=== PATIENT | female | born 1950 | race Caucasian/White ===

== ENCOUNTER 2021-04-23 13:28 | Outpatient (CLI) | payer MEDICARE, SELFPAY ==
--- NOTE | 2021-04-24 13:21 | WPDPFTINT ---
PFT Procedure Performed PFT Procedure Performed Spirometry with Pre/Post Bronchodilator Plethysmography (Lung Vol) Diffusing Cap (DLCO) Flow Vol Loop PFT Interpretation Lung volumes were measured with the body plethysmography method. The elevated residual volume and FRC are indicative of air trapping. The remaining lung volumes are unremarkable. Spirometry showed diminished expiratory flow rates and a diminished FEV1 to FVC ratio of 47%, consistent with obstructive airway disease. Following administration of a bronchodilator, there was no significant increase in expiratory flow rates. Lung diffusion capacity is severely reduced at 46% predicted. The flow volume loop is consistent with obstructive airway disease. Impression: Severe obstructive airway disease with evidence of air trapping and no response to bronchodilators on this testing. Severely reduced lung diffusion capacity.
--- NOTE | 2021-04-24 13:25 | WPDSIXMINUTE ---
Six Minute Walk Procedure Procedure Performed Pulmonary Stress Test (6 min walk) Six Minute Walk This 6 minute walk test was carried out with the patient breathing ambient air. The pre walk oxyhemoglobin saturation was 98%. The patient was able to walk over 274 m with no stops during testing. The perceived pre walk dyspnea was 3 on the Louisa scale and increased to 7 at the end of testing. During the 6 minute walk test, the oxyhemoglobin saturation remained over 94%. Impression: No evidence of oxyhemoglobin desaturation on this testing.
== END 2021-04-23 13:29 | disposition home or self-care (01) ==
PROVIDERS: Visit Provider Nurse Practitioner
DX: J44.9 Chronic obstructive pulmonary disease, unspecified (principal)
CPT/HCPCS: 94060; 94618; 94726; 94729

== ENCOUNTER 2022-03-23 12:25 | Outpatient (CLI) | payer MEDICARE, MEDICAID, SELFPAY ==
--- NOTE | 2022-03-24 09:52 | WPDSIXMINUTE ---
Six Minute Walk Procedure Procedure Performed Pulmonary Stress Test (6 min walk) Six Minute Walk Six Minute Walk: This 6 minute walk test was carried out with the patient breathing ambient air. The pre walk oxyhemoglobin saturation was 94%. The patient walked over 213 meters with no stops during testing. During the walk the oxyhemoglobin saturation remained 93% or higher. The perceived dyspnea on the Louisa scale at baseline was 0-1 and increased to 3 at the end of testing. During the walk, the patient used a wheeled walker for stability. Impression: No evidence of oxyhemoglobin desaturation on this test.
--- NOTE | 2022-03-24 09:55 | WPDPFTINT ---
PFT Procedure Performed PFT Procedure Performed Spirometry with Pre/Post Bronchodilator Plethysmography (Lung Vol) Diffusing Cap (DLCO) Flow Vol Loop PFT Interpretation Lung volumes were measured with the body plethysmography method. Lung volumes are unremarkable. Spirometry showed diminished expiratory flow rates and a diminished FEV1 to FVC ratio 53%, indicative of obstructive airway disease. Following administration of a bronchodilator there was a borderline increase in FEV1. Lung diffusion capacity is moderately reduced at 47% predicted. The flow volume loop is consistent with obstructive airway disease. In comparison to previous study in April of 2021, the post bronchodilator FVC is more or less unchanged but the post bronchodilator FEV1 is now greater by approximately 0.2 L. Lung diffusion capacity is also unchanged. Impression: Moderately severe obstructive airway disease with borderline response to bronchodilators. Moderately reduced lung diffusion capacity.
== END 2022-03-23 12:26 | disposition home or self-care (01) ==
PROVIDERS: PCP Internal Medicine; Visit Provider Nurse Practitioner
DX: J44.9 Chronic obstructive pulmonary disease, unspecified (principal); R94.2 Abnormal results of pulmonary function studies
CPT/HCPCS: 94060; 94618; 94726; 94729

== ENCOUNTER → 2023-07-08 12:12 | Outpatient (CLI) | payer MEDICARE, SELFPAY ==
--- NOTE | ~2023-07-08 | DEXA_ITS ---
Bone Density Report Name: BRANDON CONTRERAS Age: 73 Sex: Female Ethnicity: White Date of : 1950 Indication: postmenopausal osteoporosis; height loss; history of glucocorticoids; asthma or emphysema; hysterectomy; Referring Provider: Lonnie*Damien Mejia Study: Bone densitometry was performed. Exam Date: July 08, 2023 Accession number: [id number] Bone Density: Region BMD T-score Z-score Classification AP Spine (L1-L4) 0.824 -2.0 0.2 Osteopenia Femoral Neck (Left) 0.497 -3.2 -1.2 Osteoporosis Total Hip (Left) 0.602 -2.8 -1.2 Osteoporosis Femoral Neck (Right) 0.496 -3.2 -1.3 Osteoporosis Total Hip (Right) 0.596 -2.8 -1.2 Osteoporosis Total Hip Mean 0.599 -2.8 -1.2 Osteoporosis World Health Organization criteria for BMD impression classify patients as: Normal (T-score at or above -1.0), Osteopenia (T-score between -1.0 and -2.5), or Osteoporosis (T-score at or below -2.5). 10-year Fracture Risk: FRAX not reported because: Some T-score for Spine Total or Hip Total or Femoral Neck at or below -2.5 Previous Exams: Region Exam Age BMD T-score BMD Change BMD Change Date g/cm2 vs Baseline vs Previous AP Spine(L1-L4) 07/08/2023 73 0.824 -2.0 0.024* 0.024* 03/06/2018 67 0.800 -2.2 Total Hip(Left) 07/08/2023 73 0.602 -2.8 -0.023 -0.023 03/06/2018 67 0.624 -2.6 Total Hip(Right) 07/08/2023 73 0.596 -2.8 0.001 0.001 03/06/2018 67 0.595 -2.8 *Denotes significance at 95% confidence level, LSC for AP Spine = 0.022 g/cm2, LSC for Total Hip = 0.027 g/cm2 Clinical Information Provided by Patient: Has taken Glucocorticoids Has used the following medications: Prolia (i.e. denosumab), Vitamin D, Calcium, PREDNEZONE Has the following medical conditions: Asthma or Emphysema, Hysterectomy Patient maximum height was 65 Menopause Age: 26 No regular weight bearing exercise Does not regularly consume dairy products Drinks caffeinated beverages Onset of menses at age 16 Number of children 4 Impression: The patient has osteoporosis, based on the Left Femoral Neck T-score. The patient has risk factors, including: history of glucocorticoid therapy. No significant bone loss was observed. Discussion: INCREASED RISK OF FRACTURE. BONE DENSITY IS UNDESIRABLY LOW AT ONE OR MORE SKELETAL SITES, CONSISTENT WITH POSTMENOPAUSAL OSTEOPOROSIS. This patient's lowest T-score meets the World Health Organization's (W
== END ==
PROVIDERS: PCP Internal Medicine; Visit Provider Internal Medicine
DX: M81.0 Age-related osteoporosis without current pathological fracture (principal)
CPT/HCPCS: 77080

== ENCOUNTER 2023-09-22 22:04 | Observation (INO) | payer MEDICARE, SELFPAY ==
--- NOTE | ~2023-09-22 | CT_ITS ---
EXAMINATION: CT abdomen pelvis w con DATE: 09/22/2023 23:00 INDICATION: Left lower quadrant abdominal pain. TECHNIQUE: Computed tomography (CT) of the abdomen and pelvis was performed with 100 mL Omnipaque 350 intravenous contrast. Automated exposure control and iterative reconstruction technique were employe d. The dose-length product was 630.58 mGy-cm. COMPARISON: None. FINDINGS: The visualized portions of the lung bases demonstrate mild atelectasis. Calcified right constantin g nodules and calcified right hilar lymph nodes are consistent with old granulomatous disease. No ple ural effusion. The heart size is normal. There are coronary artery calcifications. No pericardial eff usion. There is a large sliding hiatal hernia. The liver is normal. There are changes of cholecystect reji. Calcifications in the spleen are consistent with old granulomatous disease. The pancreas and adr enal glands are normal. There is cortical thinning of the kidneys. There is calcified atherosclerosis of the aorta and many of the other arteries. There is diverticulosis of the colon without evidence o f diverticulitis. There is liquid stool in the colon correlating with the symptom of diarrhea. The ap pendix is normal. There are no pathologically enlarged lymph nodes. There is no free intraperitoneal fluid. There is a supraumbilical ventral hernia containing fat. There is an old healed fracture invol ving right parasymphyseal pubis and right inferior pubic ramus. There is lumbar levoscoliosis and sev ere spondylosis. IMPRESSION: 1. Large sliding hiatal hernia. 2. Supraumbilical ventral hernia containing fat. Reviewed, dictated and finalized at location E.
[2023-09-22 22:07] VITALS: BP 151/97; PULSE 129; RESP 24; TEMP 36.4; O2SAT 98
--- NOTE | 2023-09-22 22:12 | ECG_ITS ---
SEE SCANNED COPY FOR CONFIRMED REPORT MTDD
[2023-09-22 22:23] LABS: Basophils Percent Auto 0.3 % (0.2-1.2); Eosinophils Percent Auto 0.3 % (0-4.4); Hematocrit 42.9 % (37.0-47.0); Hemoglobin 13.1 g/dL (12.0-15.0); Immature Granulocyte Percent A 0.7 % (0-0.5); Lymphocytes Absolute Auto 0.41 K/mm3 (0.9-3.2); Lymphocytes Percent Auto 2.8 % (18.3-44.2); Mean Corpuscular HGB Conc 30.5 g/dl (32-36); Mean Corpuscular Hemoglobin 25.6 pg (26-34); Mean Platelet Volume 9.6 fl (7.4-10.4); Monocytes Absolute Auto 0.9 K/mm3 (0.1-0.6); Monocytes Percent Auto 6.1 % (2.6-8.5); Neutrophils Percent Auto 89.8 % (45.5-73.1); Platelet Count Result 373 k/mm3 (150-375); Red Blood Count 5.11 M/mm3 (4.2-5.4); White Blood Count 14.5 K/mm3 (4.5-10.0)
[2023-09-22 22:32] LABS: Alanine Aminotransferase 16 U/L (6-35); Albumin Level 4.7 g/dL (3.5-5.1); Alkaline Phosphatase 71 U/L (38-126); Anion Gap 11 mmol/L (4-12); Aspartate Amino Transferase 25 U/L (14-36); Bilirubin,Total 0.5 mg/dL (0.2-1.3); Blood Urea Nitrogen 21 mg/dL (7-17); Calcium 9.1 mg/dL (8.4-10.2); Carbon Dioxide 18 mmol/L (22-30); Chloride 104 mmol/L (98-107); Estimated CRCL calculation 47 ml/min; Estimated Glomerular Filt Rate > 60; Glucose 157 mg/dL (65-110); Lipase 43 U/L (23-300); Potassium 4.4 mmol/L (3.4-5.0); Sodium 133 mmol/L (137-145)
[2023-09-22] MEDS: PANTOPRAZOLE SODIUM IV 40 MG VIAL IV PUSH (22:33)
[2023-09-22] MEDS: ONDANSETRON INJ 4 MG/2 ML VIAL IV PUSH (22:33)
[2023-09-22] MEDS: SODIUM CHLORIDE 0.9% IV 1,000 ML 999 ML IV CONT ×2 (22:34→23:47)
--- NOTE | 2023-09-22 22:57 | ED.GENADULT ---
HPI - General Adult General Chief complaint: Nausea/Vomiting/Diarrhea Stated complaint: vomitting and diarrhea Time Seen by Provider: 09/22/23 22:11 History of Present Illness HPI narrative: is 73-year-old female presents emergency department with chief complaint nausea vomiting diarrhea. Patient reports she has history RAMAN and reports that she started having episodes of loose stool and reports that she had several episodes of vomiting patient reports she has not been able to keep much fluid down reports that she has pain in the epigastric region reports she has prior history of hiatal hernia. Patient reports she has history of anemia and takes iron supplementation reports no blood in her diarrhea or vomitus Related Data Home Medications Medication Instructions Recorded Confirmed albuterol sulfate 90 mcg/actuation 2 puff inhalation Q4H PRN SOB 08/15/23 08/15/23 aerosol inhaler aspirin 81 mg tablet 81 mg PO DAILY 08/15/23 08/15/23 budesonide-formoterol HFA 160 2 puff inhalation Q12H 08/15/23 08/15/23 mcg-4.5 mcg/actuation aerosol inhaler (Symbicort) fluoxetine 20 mg capsule 20 mg PO DAILY 08/15/23 08/15/23 omeprazole 20 mg tablet,delayed 20 mg PO DAILY 08/15/23 08/15/23 release prednisone 5 mg tablet 5 mg PO DAILY 08/15/23 08/15/23 rosuvastatin 20 mg tablet 20 mg PO DAILY 08/15/23 08/15/23 trimethoprim 100 mg tablet 100 mg PO DAILY 08/15/23 08/15/23 umeclidinium 62.5 mcg/actuation 1 inh inhalation DAILY 08/15/23 08/15/23 blister powder for inhalation (Incruse Ellipta) Allergies Allergy/AdvReac Type Severity Reaction Status Date / Time atorvastatin [From Lipitor] Allergy Swelling Verified 08/15/23 09:19 of Lip/Tongue/Throat Review of Systems Review of Systems: A 10 system review of systems was completed on the patient and is negative except for what is stated in the HPI. Nursing and ancillary documentation was reviewed. [facility] Social History Social History Years smoked: 50 Smoking status: Former smoker Tobacco type: cigarettes Last use: 2018 Living arrangements: with family Spiritual care concerns: No Exam Narrative: GENERAL: Well-appearing, well-nourished, and in no acute distress. HEAD: Normocephalic, atraumatic. EYES: PERRLA and EOMI. ENT: Nares clear, no rhinorrhea or epistaxis. Mucous membranes moist. NECK: Supple. CHEST: Clear to auscultation. No respiratory distress. HEART: Regular rate and rhythm. No murmur heard. Normal peripheral pulses. ABDOMEN: Soft, nontender, nondistended, normal active bowel sounds. EXTREMITIES: Normal range of motion. No edema. SKIN: Warm, dry, no rash. NEURO: No focal deficits. Alert and oriented x3. PSYCH: Normal mood and affect. Course Vital Signs Vital signs: Vital Signs Temperature 36.4 C L 09/22/23 22:07 Pulse Rate 129 H 09/22/23 22:07 Respiratory Rate 24 H 09/22/23 22:07 Blood Pressure 151/97 H 09/22/23 22:07 Pulse Oximetry 98 09/22/23 22:07 Oxygen Delivery Room Air 09/22/23 22:07 Temperature 36.4 C L 09/22/23 22:07 Pulse Rate 117 H 09/22/23 23:42 Respiratory Rate 24 H 09/22/23 22:07 Blood Pressure 158/108 H 09/22/23 23:42 Pulse Oximetry 98 09/22/23 22:07 Oxygen Delivery Room Air 09/22/23 22:07 Medical Decision Making [facility] Narrative Medical decision making narrative: differential diagnosis includes gastroenteritis, viral illness, dehydration, diverticulitis, colitis, pancreatitis, laboratory studies were obtained on the patient showed a white count of 14.5 hemoglobin was 13.1 electrolytes showed sodium 133 CO2 was 18 BUN was 21 creatinine 0.9 glucose is 157 bilirubin 0.5 AST ALT are normal lipase is 43 CT scan of the abdomen pelvis showed 1. Large sliding hiatal hernia. 2. Supraumbilical ventral hernia containing fat. patient received IV fluids and antiemetics and is feeling much better at this t
[2023-09-22 23:42] VITALS: BP 120/78; BP 158/108; BP 164/92; PULSE 112; PULSE 117; PULSE 85
[2023-09-22 23:55] LABS: Appearance Urine Clear (Clear); Bilirubin Urine Negative (Negative); Blood Urine Negative (Negative); Color Urine Yellow (Yellow); Glucose Urine UA Negative (Negative); Ketones Urine Negative (Negative); Leukocyte Esterase Ur Negative LEU/UL (Negative); Nitrate Urine Negative (Negative); Protein Urine Negative (Negative); Urobilinogen Urine 0.2 mg/dL (<2.0); pH Urine 5.5 (5.0-9.0)
[2023-09-22 23:56] LABS: Add Urine Microscopic? NO; Specific Grav Ur 1.038 (1.001-1.035)
[2023-09-23] MEDS: ONDANSETRON INJ 4 MG/2 ML VIAL IV PUSH (00:41)
--- NOTE | 2023-09-23 02:03 | PM.IMHP ---
H&P: HPI History of Present Illness Date/Time: 09/23/23 02:03 Chief Complaint: n/v Narrative: 73-year-old female with past medical history significant for COPD/ emphysema, depression, dyslipidemia, hiatal hernia, ventral hernia. Patient presents to the emergency room due to nausea ,vomiting, diarrhea, abdominal pain x1 day duration, poor per orally intake. Patient has been in her usual state of health up until this point, denies any coffee-ground emesis, hematemesis, bright red blood per rectum, melena, fevers, rigors, chills. preliminary workup was significant for patient was found orthostatic had 2 L fluid resuscitation in emergency room however tachycardic upon standing. Patient has been placed in observation EXAMINATION: CT abdomen pelvis w con DATE: 09/22/2023 23:00 INDICATION: Left lower quadrant abdominal pain. TECHNIQUE: Computed tomography (CT) of the abdomen and pelvis was performed with 100 mL Omnipaque 350 intravenous contrast. Automated exposure control and iterative reconstruction technique were employed. The dose-length product was 630.58 mGy-cm. COMPARISON: None. FINDINGS: The visualized portions of the lung bases demonstrate mild atelectasis. Calcified right lung nodules and calcified right hilar lymph nodes are consistent with old granulomatous disease. No pleural effusion. The heart size is normal. There are coronary artery calcifications. No pericardial effusion. There is a large sliding hiatal hernia. The liver is normal. There are changes of cholecystectomy. Calcifications in the spleen are consistent with old granulomatous disease. The pancreas and adrenal glands are normal. There is cortical thinning of the kidneys. There is calcified atherosclerosis of the aorta and many of the other arteries. There is diverticulosis of the colon without evidence of diverticulitis. There is liquid stool in the colon correlating with the symptom of diarrhea. The appendix is normal. There are no pathologically enlarged lymph nodes. There is no free intraperitoneal fluid. There is a supraumbilical ventral hernia containing fat. There is an old healed fracture involving right parasymphyseal pubis and right inferior pubic ramus. There is lumbar levoscoliosis and severe spondylosis. IMPRESSION: 1. Large sliding hiatal hernia. 2. Supraumbilical ventral hernia containing fat. Review of Systems Review of Systems: nausea, vomiting, diarrhea, abdominal pain. [facility] Past Medical History Medical History (Updated 09/23/23 @ 08:01 by Sarah Guerrero APRN) COPD (chronic obstructive pulmonary disease) Hyperlipidemia Social History Social History Years smoked: 50 Smoking status: Former smoker Alcohol intake: former Substance use type: does not use Last use: 2019 Do You Feel Safe in your Home?: Yes Lack of Transportation: No Lack of Food: Never True Current Housing: I Have Housing Concerned About Future Housing: No Difficulty Paying Gas/Electric Bills: No Difficulty Paying for Meds: No Currently Unemployed: No Education: High School Diploma/GED Difficulty w/ Childcare or Family Care: No Living arrangements: with family Spiritual care concerns: No Meds Home Medications and Allergies Home Medications Medication Instructions Recorded Confirmed Type albuterol sulfate 90 mcg/actuation 2 puff inhalation Q4H PRN SOB 08/15/23 09/23/23 History aerosol inhaler aspirin 81 mg tablet 81 mg PO DAILY 08/15/23 09/23/23 History budesonide-formoterol HFA 160 2 puff inhalation Q12H 08/15/23 09/23/23 History mcg-4.5 mcg/actuation aerosol inhaler (Symbicort) fluoxetine 20 mg capsule 20 mg PO DAILY 08/15/23 09/23/23 History omeprazole 20 mg tablet,delayed 20 mg PO DAILY 08/15/23 09/23/23 History release prednisone 5 mg tablet 5 mg PO DAILY 08/15/23 09/23/23 History rosuvastatin 20 mg tablet 20 mg PO DAILY 08/15/23
[2023-09-23 04:20] VITALS: O2SAT 100
[2023-09-23 04:31] VITALS: PULSE 125; RESP 15; O2SAT 100
[2023-09-23 05:05] VITALS: BP 129/71; PULSE 114; RESP 16; TEMP 36.3; O2SAT 95
[2023-09-23] MEDS: SODIUM CHLORIDE 0.9% IV 1,000 ML 125 ML IV CONT (05:07)
[2023-09-23 05:48] VITALS: BMI 32.0
--- NOTE | 2023-09-23 07:44 | PM.IMPN ---
Progress Note: A&P Assessment and Plan (1) Intractable nausea and vomiting: Code(s): R11.2 - Nausea with vomiting, unspecified Status: Acute Assessment and Plan: 08/24/23: placed in observation Patient was given 2 L of normal saline while in the ED, normal saline started at 125 mL per hour Patient remains tachycardic with heart rate 114-125 (2) COPD (chronic obstructive pulmonary disease): Code(s): J44.9 - Chronic obstructive pulmonary disease, unspecified Status: Inactive Assessment and Plan: 08/24/23: Continue Incruse Ellipta inhaler and albuterol inhaler (3) Hyperlipidemia: Code(s): E78.5 - Hyperlipidemia, unspecified Status: Acute Assessment and Plan: 08/24/23: Continue aspirin and rosuvastatin Time Spent With Patient Time with patient: Greater than 35 minutes Subjective Date/time seen: 09/23/23 07:44 Interval history: This is a 73-year-old female who to hospital 09/23/2023 with nausea, vomiting, and diarrhea. Workup hospital included a CT of the abdomen and pelvis which shown a large sliding hiatal hernia, supraumbilical ventral hernia containing fat. Initial labs showed a white blood cell count of 14.5, sodium 133, bicarb 18. UA was also performed and was essentially negative. Patient was given 2 L of normal saline, Zofran, Protonix in the ED. she was started IV fluids at 125 mL/hr. Examination today patient. Patient denies. Patient endorses. Review of Systems Review of Systems: All systems reviewed & are unremarkable except as noted in HPI and below Constitutional: Constitutional: Reports as per HPI and Reports no additional constitutional complaints Eyes: Eyes: Reports as per HPI and Reports no additional eye complaints ENT: Reports system reviewed and no additional complaints, except as documented and Reports as per HPI Cardiovascular: Cardiovascular: Reports as per HPI and Reports no additional cardiovascular complaints Respiratory: Respiratory: Reports as per HPI and Reports no additional respiratory complaints Gastrointestinal: Gastrointestinal: Reports as per HPI and Reports no additional gastrointestinal complaints Genitourinary: Genitourinary: Reports no additional female genitourinary complaints and Reports as per HPI Musculoskeletal: Musculoskeletal: Reports no additional musculoskeletal complaints and Reports as per HPI Integumentary/Breasts: Skin/Breast: Reports system reviewed and no additional complaints, except as docu and Reports as per HPI Neurologic: Reports system reviewed and no additional complaints, except as documented and Reports as per HPI Psychiatric: Psychiatric: Reports no additional psychiatric complaints and Reports as per HPI Exam Narrative: General: In no acute distress, well nourished Head: atraumatic, no encephalopathy Eyes: EOMI, PERRLA, sclera clear ENT: moist mucous membranes, nasal passages clear Neck: supple, no JVD, no adenopathy, trachea midline Cardiac: Normal S1 and S2. No murmur, gallops or friction rubs, peripheral pulses intact. Respiratory: Lungs clear to auscultation, no adventitious lung sounds Gastrointestinal: soft, non-distended, non-tender, normoactive bowel sounds. : voiding without difficulty. Extremities: moves all extremities well, no edema, good ROM, strength 5/5 Skin: clean, dry, intact. No wounds or lesions. Neuro: Alert and oriented x4, cranial nerves intact, no neuro deficits. Psych: normal mood, normal affect, interactive Objective Data Vital Signs Vital Signs: Vital Signs - 24 hr 09/22/23 22:07 09/22/23 23:42 09/22/23 23:42 Temperature 97.5 F L Pulse Rate 129 H 85 112 H Respiratory Rate 24 H Blood Pressure 151/97 H 120/78 164/92 H Pulse Oximetry 98 Oxygen Delivery Room Air 09/22/23 23:42 09/23/23 04:31 09/23/23 04:20 Temperature Pulse Rate 117 H 125 H Respiratory Rate 15 Blood Pressure 158/108 H Pulse Oximetry 100 100 Oxyg
[2023-09-23 08:57] VITALS: O2SAT 95
--- NOTE | 2023-09-23 12:10 | PM.DS ---
DS: Admitting Diagnosis Discharge Date 09/23/23 Admitting Diagnosis Intractable nausea and vomiting COPD DS: Summary Hospital Course Reason for hospitalization: Intractable nausea and vomiting COPD Hospital Course: This is a 73-year-old female who to hospital 09/23/2023 with nausea, vomiting, and diarrhea. Workup hospital included a CT of the abdomen and pelvis which shown a large sliding hiatal hernia, supraumbilical ventral hernia containing fat. Initial labs showed a white blood cell count of 14.5, sodium 133, bicarb 18. UA was also performed and was essentially negative. Patient was given 2 L of normal saline, Zofran, Protonix in the ED. she was started IV fluids at 125 mL/hr. Examination today patient is alert oriented x3, sitting in the bed. Family is at the bedside. Patient denies any fever, chills, nausea, vomiting, diarrhea, abdominal pain, chest pain, shortness a breath. Patient patient states she is feeling much better today and wishes to go home. She is stable for discharge at this time. She will need to follow up with her primary care physician in 1 week. Final diagnosis: Intractable nausea and vomiting, dehydration Status at Discharge Cognitive/behavioral status at discharge: Alert oriented x3 Functional status at discharge: independent ambulation Overall status at discharge: patient is progressing back to baseline Time Spent with Patient Time attestation: Total time spent providing and/or coordinating discharge services: Time spent: Greater than 30 minutes Exam Narrative: General: In no acute distress, well nourished Head: atraumatic, no encephalopathy Eyes: EOMI, PERRLA, sclera clear ENT: moist mucous membranes, nasal passages clear Neck: supple, no JVD, no adenopathy, trachea midline Cardiac: Normal S1 and S2. RRR, No murmur, gallops or friction rubs, peripheral pulses intact. Respiratory: Lungs clear to auscultation, no adventitious lung sounds, currently on room air Gastrointestinal: soft, non-distended, non-tender, normoactive bowel sounds. : voiding without difficulty. Extremities: moves all extremities well, no edema, good ROM, strength 5/5 Skin: clean, dry, intact. No wounds or lesions. Neuro: Alert and oriented x4, cranial nerves intact, no neuro deficits. Psych: normal mood, normal affect, interactive DS: Data Data Completed and Pending Completed studies during hospitalization: Abdomen/pelvis CT Pending studies at discharge: None Labs on day of discharge: Labs from last 24 hours 09/22/23 09/22/23 23:49 22:14 WBC 14.5 H RBC 5.11 Hgb 13.1 Hct 42.9 MCV 84.0 MCH 25.6 L MCHC 30.5 L RDW 19.0 H Plt Count 373 MPV 9.6 Immature Gran % (Auto) 0.7 H Neut % (Auto) 89.8 H Lymph % (Auto) 2.8 L Gila % (Auto) 6.1 Eos % (Auto) 0.3 Baso % (Auto) 0.3 Lymph # (Auto) 0.41 L Gila # (Auto) 0.9 H Eos # (Auto) 0.0 Baso # (Auto) 0.0 Abs Immat Gran (auto) 0.10 H Absolute Neuts (auto) 13.0 H Absolute Nucleated RBC 0.000 Nucleated RBC % 0.0 Sodium 133 L Potassium 4.4 Chloride 104 Carbon Dioxide 18 L Anion Gap 11 BUN 21 H Creatinine 0.90 Estim Creat Clear Calc 47 Estimated GFR > 60 Glucose 157 H Calcium 9.1 Total Bilirubin 0.5 AST 25 ALT 16 Alkaline Phosphatase 71 Total Protein 8.0 Albumin 4.7 Lipase 43 Urine Color Yellow Urine Appearance Clear Urine pH 5.5 Ur Specific [place] 1.038 H Urine Protein Negative Urine Glucose (UA) Negative Urine Ketones Negative Ur Blood (Man) Negative Urine Nitrate Negative Urine Bilirubin Negative Urine Urobilinogen 0.2 Leukocyte Esterase Rfl Negative Procedures/Treatments: None Discharge Plan Discharge Attending physician on discharge: Ilia Patrick Discharging Clinician: Sarah Guerrero Anticipated Discharge Date/Time: 09/23/23 11:52 Patient Disposition: Home, Self-Care Activity: as tolerated Diet: as daniel
== END 2023-09-23 12:55 | disposition home or self-care (01) ==
LOC: ANHED 09-23 02:09 → ANH3MEDSUR 09-23 09:53
PROVIDERS: Admitting Provider Internal Medicine; Emergency Provider Emergency Medicine; PCP Internal Medicine; Visit Provider Internal Medicine
DX: R11.2 Nausea with vomiting, unspecified (principal); K44.9 Diaphragmatic hernia without obstruction or gangrene; K42.9 Umbilical hernia without obstruction or gangrene; K75.81 Nonalcoholic steatohepatitis (NASH); J44.9 Chronic obstructive pulmonary disease, unspecified; E78.5 Hyperlipidemia, unspecified; Z79.51 Long term (current) use of inhaled steroids; Z79.82 Long term (current) use of aspirin; Z87.891 Personal history of nicotine dependence
CPT/HCPCS: 36415; 74177; 80053; 81003; 83690; 85025; 93005; 96361; 96374; 96375; 96376; 99285; A9270; C9113; G0378; J2405; J7030; Q9967

== ENCOUNTER 2023-10-10 00:28 | Day surgery (SDC) | payer MEDICARE, SELFPAY ==
[2023-08-15 09:25] VITALS: BMI 30.2
--- NOTE | 2023-08-16 12:50 | SUR.PREOP ---
Patient called regarding upcoming procedure. Reviewed preop instructions, new appointment times, and procedure prep.
--- NOTE | 2023-08-19 06:24 | SUR.PREOP ---
called pt at 0624 to see if she was coming in. Patient said she called someone and left a message that she vomited her prep and then realized she was suppose to be off her iron for 5 days. Patient will reschedule. Told patient we would caller later in the day to get her rescheduled. Patient was apologetic in cancelling and was in agreement with us calling her later to reschedule.
[2023-09-27 14:49] VITALS: BMI 30.2
[2023-09-27 16:01] VITALS: BMI 30.2
[2023-10-10 01:00] VITALS: BP 128/71; PULSE 99; RESP 20; O2SAT 97
[2023-10-10 11:53] VITALS: BP 143/82; PULSE 118; RESP 20; TEMP 37; O2SAT 98; BMI 29.3
[2023-10-10] MEDS: LACTATED RINGERS 1,000 ML 150 ML IV CONT (12:03)
--- NOTE | 2023-10-10 13:43 | PM.HPGS ---
History of Present Illness History of Present Illness Consent: Risks, benefits, and alternatives have been discussed and questions answered. Patient agrees to proceed with procedure. Chief complaint: Constipation, Anemia, Cirrhosis of liver Narrative: Lindsey Lucas is a 73 year old female here for colonoscopy and egd, found to have mild anemia but recent hgb normal at 13.1, had scopes but more than 10 years ago, recent imaging also showed large hiatal hernia- denies dysphagia Review of Systems Review of Systems: All systems reviewed & are unremarkable except as noted in HPI and below PMFSH Past Medical History Medical History (Updated 10/07/23 @ 13:28 by Ismael Cowan MD) Anemia COPD (chronic obstructive pulmonary disease) History of TIA (transient ischemic attack) Hyperlipidemia Surgical History Surgical History History of cholecystectomy History of hysterectomy History of tonsillectomy Social History Social History Years smoked: 50 Smoking status: Former smoker Alcohol intake: former Substance use type: does not use Last use: 2019 Do You Feel Safe in your Home?: Yes Lack of Transportation: No Lack of Food: Never True Current Housing: I Have Housing Concerned About Future Housing: No Difficulty Paying Gas/Electric Bills: No Difficulty Paying for Meds: No Currently Unemployed: No Education: High School Diploma/GED Difficulty w/ Childcare or Family Care: No Living arrangements: with family Spiritual care concerns: No Meds Home Medications and Allergies Home Medications Medication Instructions Recorded Confirmed Type albuterol sulfate 90 mcg/actuation 2 puff inhalation Q4H PRN SOB 08/15/23 10/10/23 History aerosol inhaler aspirin 81 mg tablet 81 mg PO DAILY 08/15/23 10/10/23 History budesonide-formoterol HFA 160 2 puff inhalation Q12H 08/15/23 10/10/23 History mcg-4.5 mcg/actuation aerosol inhaler (Symbicort) fluoxetine 20 mg capsule 20 mg PO DAILY 08/15/23 10/10/23 History omeprazole 20 mg tablet,delayed 20 mg PO DAILY 08/15/23 10/10/23 History release prednisone 5 mg tablet 5 mg PO DAILY 08/15/23 10/10/23 History rosuvastatin 20 mg tablet 20 mg PO DAILY 08/15/23 10/10/23 History trimethoprim 100 mg tablet 100 mg PO DAILY 08/15/23 10/10/23 History umeclidinium 62.5 mcg/actuation 1 inh inhalation DAILY 08/15/23 10/10/23 History blister powder for inhalation (Incruse Ellipta) ferrous sulfate 325 mg (65 mg 325 mg PO DAILY 09/27/23 10/10/23 History iron) tablet Allergies Allergy/AdvReac Type Severity Reaction Status Date / Time atorvastatin [From Lipitor] Allergy Swelling Verified 10/10/23 11:52 of Lip/Tongue/Throat Vital Signs Vital Signs - 24 hr 10/10/23 11:53 Temperature 98.6 F Pulse Rate 118 H Respiratory Rate 20 Blood Pressure 143/82 H Pulse Oximetry 98 Oxygen Delivery Room Air Exam Const: General: comfortable and no acute distress HENMT: Face/Nose/Sinus: Normal nares present Eyes: General: appearance normal, both eyes and all related structures Neck: Neck: no JVD Resp: Auscultation: clear to auscultation bilaterally Cardio: Rate: regular rate Rhythm: regular rhythm GI: Inspection: non-distended GI Palp: Yes Soft to palpation Skin: General skin exam: normal color Neuro: General: gait normal Speech: normal speech Extrem: General: normal to inspection Psych: Mental Status: mental status grossly normal Assessment and Plan Assessment and plan (1) Anemia: Code(s): D64.9 - Anemia, unspecified Status: Acute Assessment and Plan: will proceed with egd and colonoscopy recent h/h normal (2) Hiatal hernia: Code(s): K44.9 - Diaphragmatic hernia without obstruction or gangrene Status: Acute
--- NOTE | 2023-10-10 13:47 | WPDANESEPPF ---
Anes - Initial Pre Proc Eval Procedure: Operation Date: 10/10/23 13:30 Proposed Procedures p Esophagogastroduodenoscopy & Colonoscopy - Ismael Cowan MD Date/Time: 10/10/23 13:47 Surgeon: Ismael Cowan MD Pre Op Diagnosis: Constipation, Anemia, Cirrhosis of liver Patient Data Age: 73 Gender: F Height: 1.57 m Weight: 72.8 kg Last Vital Signs Temp 98.6 F 10/10/23 11:53 Pulse 118 H 10/10/23 11:53 Resp 20 10/10/23 11:53 BP 143/82 H 10/10/23 11:53 Pulse Ox 98 10/10/23 11:53 O2 Del Method Room Air 10/10/23 11:53 Allergies Allergy/AdvReac Type Severity Reaction Status Date / Time atorvastatin [From Lipitor] Allergy Swelling Verified 10/10/23 11:52 of Lip/Tongue/Throat Home Medications Medication Instructions Recorded Confirmed Type albuterol sulfate 90 mcg/actuation 2 puff inhalation Q4H PRN SOB 08/15/23 10/10/23 History aerosol inhaler aspirin 81 mg tablet 81 mg PO DAILY 08/15/23 10/10/23 History budesonide-formoterol HFA 160 2 puff inhalation Q12H 08/15/23 10/10/23 History mcg-4.5 mcg/actuation aerosol inhaler (Symbicort) fluoxetine 20 mg capsule 20 mg PO DAILY 08/15/23 10/10/23 History omeprazole 20 mg tablet,delayed 20 mg PO DAILY 08/15/23 10/10/23 History release prednisone 5 mg tablet 5 mg PO DAILY 08/15/23 10/10/23 History rosuvastatin 20 mg tablet 20 mg PO DAILY 08/15/23 10/10/23 History trimethoprim 100 mg tablet 100 mg PO DAILY 08/15/23 10/10/23 History umeclidinium 62.5 mcg/actuation 1 inh inhalation DAILY 08/15/23 10/10/23 History blister powder for inhalation (Incruse Ellipta) ferrous sulfate 325 mg (65 mg 325 mg PO DAILY 09/27/23 10/10/23 History iron) tablet Patient hx anesthesia problems: none Family hx anesthesia problems: none Results Review: All pre-operative results and documents have been reviewed as part of the pre-operative evaluation. [facility] Past Medical History Medical History (Updated 10/07/23 @ 13:28 by Ismael Cowan MD) Anemia COPD (chronic obstructive pulmonary disease) History of TIA (transient ischemic attack) Hyperlipidemia Surgical History Surgical History History of cholecystectomy History of hysterectomy History of tonsillectomy Social History Social History Years smoked: 50 Smoking status: Former smoker Alcohol intake: former Substance use type: does not use Last use: 2019 Do You Feel Safe in your Home?: Yes Lack of Transportation: No Lack of Food: Never True Current Housing: I Have Housing Concerned About Future Housing: No Difficulty Paying Gas/Electric Bills: No Difficulty Paying for Meds: No Currently Unemployed: No Education: High School Diploma/GED Difficulty w/ Childcare or Family Care: No Living arrangements: with family Spiritual care concerns: No Anes - Eval Final PreProcedure Day of Procedure 10/10/23 13:47 Patient weight: obese Heart: regular rate and rhythm Lungs: clear to auscultation Airway: Mallampati scale class II Neurological: alert and oriented Last oral intake: >/= 8 hours ASA classification: IV Emergent: no Anesthetic plan: proceed Anesthesia type and monitoring: general GIVS and standard monitoring Results Review: All pre-operative results and documents have been reviewed as part of the pre-operative evaluation. Informed Consent: The patient's anesthetic plan and its attendant risks and benefits were discussed with the patient/family/POA. Questions were solicited and answers provided to the satisfaction of the patient/family/POA.
--- NOTE | 2023-10-10 13:58 | SUR.OPER ---
EGD start 1350 end 1352, Colonoscopy start 1358
--- NOTE | 2023-10-10 14:03 | SUR.OPER ---
Oral suction used during procedure by HEALTH TECHNICIAN HEARING.
[2023-10-10 14:41] VITALS: BP 118/76; PULSE 97; RESP 20; O2SAT 98
[2023-10-10 14:48] VITALS: BP 124/73; PULSE 94; RESP 20; O2SAT 100
== END 2023-10-10 14:59 | disposition home or self-care (01) ==
PROVIDERS: PCP Internal Medicine; Visit Provider Internal Medicine Gastroenterology
PROC: 0DJ08ZZ Inspection of Upper Intestinal Tract, Via Natural or Artificial Opening Endoscopic (ICD-10-PCS; CPT 43235; principal; 2023-10-10 13:30)
DX: K57.30 Diverticulosis of large intestine without perforation or abscess without bleeding (principal); K44.9 Diaphragmatic hernia without obstruction or gangrene; D12.0 Benign neoplasm of cecum; D12.2 Benign neoplasm of ascending colon; D12.3 Benign neoplasm of transverse colon; D12.4 Benign neoplasm of descending colon; D64.9 Anemia, unspecified; K74.60 Unspecified cirrhosis of liver; J44.9 Chronic obstructive pulmonary disease, unspecified; I25.2 Old myocardial infarction; E78.5 Hyperlipidemia, unspecified; E66.9 Obesity, unspecified; Z68.29 Body mass index [BMI] 29.0-29.9, adult; Z79.51 Long term (current) use of inhaled steroids; Z79.52 Long term (current) use of systemic steroids; Z98.890 Other specified postprocedural states; Z90.49 Acquired absence of other specified parts of digestive tract; Z87.891 Personal history of nicotine dependence
CPT/HCPCS: 43235; 45385; 45381; 88305; J2704; J7120

== ENCOUNTER 2023-11-30 11:58 | Outpatient (CLI) | payer MEDICARE, SELFPAY ==
[2023-11-30 12:58] LABS: Hematocrit 40.3 % (37.0-47.0); Hemoglobin 12.2 g/dL (12.0-15.0)
[2023-11-30 13:07] LABS: Anion Gap 11 mmol/L (4-12); Blood Urea Nitrogen 15 mg/dL (7-17); Calcium 9.3 mg/dL (8.4-10.2); Carbon Dioxide 25 mmol/L (22-30); Chloride 102 mmol/L (98-107); Estimated Glomerular Filt Rate > 60; Glucose 101 mg/dL (65-110); Potassium 3.9 mmol/L (3.4-5.0); Sodium 138 mmol/L (137-145)
[2023-11-30 13:18] LABS: Partial Thromboplastin Time 33.1 Seconds (22.3-36.8)
[2023-11-30 13:35] LABS: INR 0.9; Prothrombin Time 12.5 Seconds (11.1-14.7)
== END 2023-11-30 11:59 | disposition home or self-care (01) ==
LOC: ANHSURGERY 12:03
PROVIDERS: Anesthesiology; PCP Internal Medicine; Visit Provider Surgery
DX: Z01.818 Encounter for other preprocedural examination (principal); K43.9 Ventral hernia without obstruction or gangrene; K74.60 Unspecified cirrhosis of liver; K64.9 Unspecified hemorrhoids
CPT/HCPCS: 36415; 80048; 85014; 85018; 85610; 85730

== ENCOUNTER 2023-12-02 00:18 | Day surgery (SDC) | payer MEDICARE, SELFPAY ==
[2023-11-29 15:10] VITALS: BMI 27.5
--- NOTE | 2023-11-29 16:29 | PC.NURSE ---
Report to the Outpatient Waiting Room, entrance under the green pavilion located off [facility], at time _10:00AM on date ___12/02/23____. Planned Procedure Time: __12:00PM . Time changes happen often and if your time is changed the preop area will call you the afternoon before. - You and your visitor will be asked to self-screen and do not enter if you have any COVID symptoms. - A mask is optional within the hospital at this time. Patients may have clear liquids (water, carbonated beverages, clear teas, apple juice) until 3 hours prior to surgery with a maximum of 20 ounces. - No food from midnight until time of surgery. Take the following medications with a SIP of water the morning of surgery: _SYMBICORT, TRELEGY ELLIPTA INHALER, ALBUTEROL INHALER, FLUOXETINE, NASAL SPRAY, TRIMETHOPRIM, PREDNISONE DO NOT STOP ANY OF YOUR OTHER PRESCRIPTION MEDICATIONS PRIOR TO SURGERY ?EXCEPT THE FOLLOWING Medications to discontinue per physician ___HOLD ALL VITAMINS/SUPPLEMENTS 3 DAYS PRE-OP PER ANESTHESIA Date to take last dose____11/29/23 Please no make-up, nail malay, hairspray, perfume, deodorant, or body powder the day of surgery. No jewelry (including any body piercings) or valuables the day of surgery, leave them at home. Please take a shower or bath the night before, or the morning of, surgery with an antibacterial soap. Wear comfortable, loose fitting clothing. Children are encouraged to wear pajamas.entering the operating room. Rings and piercings that are not removed may be cut off. - The hospital will not accept responsibility for valuables. - Please leave all valuables, including medications, at home the day of surgery. If you are going home after surgery, a licensed delivery truck driver must drive you home. - NO public transportation without another adult if you receive anesthesia. - We recommend that an adult stay with you for 24 hours following discharge. - We also recommend that you do not drive, make important decision, drink alcoholic beverages, or take any drugs that were not prescribed by your health care provider for at least 24 hours after your discharge time. Follow any additional instructions given to you from your surgeon. If you or anyone in your household have experienced Covid symptoms in the past week, please notify your surgeon or the nurse liaison at the phone number below for possible testing. Telephone instructions given to ___PATIENT and asked if any additional questions and then verbalized understanding. Patient advised to call surgeon office or pre surgery nurse liaison [phone] if any additional questions.
[2023-12-02] VITALS (9 sets, daily range): BP systolic 97–126; BP diastolic 50–74; PULSE 79–103; RESP 14–20; TEMP 36.3–36.5; O2SAT 92–100
[2023-12-02] MEDS: KETOROLAC 15 MG/ML VIAL (*BKC) IV PUSH (10:30)
[2023-12-02] MEDS: LACTATED RINGERS 1,000 ML 30 ML IV CONT (10:30)
[2023-12-02] MEDS: ACETAMINOPHEN 500 MG TABLET 1000 MG PO (10:30)
--- NOTE | 2023-12-02 11:19 | WPDANESEPPF ---
Anes - Initial Pre Proc Eval Procedure: Operation Date: 12/02/23 12:00 Proposed Procedures p Open Ventral Hernia Repair with Mesh - Chuck Mercado DO Date/Time: 12/02/23 11:19 Surgeon: Chuck Mercado DO Pre Op Diagnosis: Ventral Hernia 2 cm Patient Data Age: 73 Gender: F Height: 1.65 m Weight: 75 kg Last Vital Signs Temp 97.3 F L 12/02/23 10:30 Pulse 96 12/02/23 10:30 Resp 14 12/02/23 10:30 BP 116/72 12/02/23 10:30 Pulse Ox 99 12/02/23 10:30 O2 Del Method Room Air 12/02/23 10:30 Allergies Allergy/AdvReac Type Severity Reaction Status Date / Time atorvastatin [From Lipitor] Allergy Severe Swelling Verified 12/02/23 10:40 of Lip/Tongue/Throat Home Medications Medication Instructions Recorded Confirmed Type albuterol sulfate 90 mcg/actuation 2 puff inhalation Q4H PRN SOB 08/15/23 12/02/23 History aerosol inhaler aspirin 81 mg tablet 81 mg PO DAILY 08/15/23 12/02/23 History budesonide-formoterol HFA 160 2 puff inhalation Q12H SOB 08/15/23 11/29/23 History mcg-4.5 mcg/actuation aerosol inhaler (Symbicort) fluoxetine 20 mg capsule 20 mg PO DAILY 08/15/23 11/29/23 History omeprazole 20 mg tablet,delayed 20 mg PO DAILY 08/15/23 11/29/23 History release prednisone 5 mg tablet 5 mg PO DAILY 08/15/23 11/29/23 History rosuvastatin 20 mg tablet 20 mg PO DAILY 08/15/23 11/29/23 History trimethoprim 100 mg tablet 100 mg PO DAILY 08/15/23 11/29/23 History umeclidinium 62.5 mcg/actuation 1 inh inhalation DAILY 08/15/23 11/29/23 History blister powder for inhalation (Incruse Ellipta) ferrous sulfate 325 mg (65 mg 325 mg PO DAILY 09/27/23 11/29/23 History iron) tablet acetaminophen 650 mg 650 mg PO Q12H PRN Pain 11/29/23 11/29/23 History tablet,extended release (Tylenol Arthritis Pain) cholecalciferol (vitamin D3) 25 25 mcg PO DAILY 11/29/23 11/29/23 History mcg (1,000 unit) capsule cyanocobalamin (vitamin B-12) See Rx Instructions .Route .COMPLEX 11/29/23 11/29/23 History 1,000 mcg/mL injection solution fluticasone propionate 50 See Rx Instructions .Route 11/29/23 11/29/23 History mcg/actuation nasal .COMPLEX PRN Congestion spray,suspension Patient hx anesthesia problems: none Family hx anesthesia problems: none Results Review: All pre-operative results and documents have been reviewed as part of the pre-operative evaluation. [facility] Past Medical History Medical History (Updated 10/07/23 @ 13:28 by Ismael Cowan MD) Anemia COPD (chronic obstructive pulmonary disease) History of TIA (transient ischemic attack) Hyperlipidemia Surgical History Surgical History History of cholecystectomy History of hysterectomy History of tonsillectomy Social History Social History Smoking packs per day: 1 Smoking cigarettes per day: 20.0 Years smoked: 45 Smoking pack-years: 45.00 Smoking status: Former smoker Tobacco type: cigarettes Alcohol intake: former Substance use: never Substance use type: does not use Last use: 11/20/2014 Do You Feel Safe in your Home?: Yes Lack of Transportation: No Lack of Food: Never True Current Housing: I Have Housing Concerned About Future Housing: No Difficulty Paying Gas/Electric Bills: No Difficulty Paying for Meds: No Currently Unemployed: No Education: High School Diploma/GED Difficulty w/ Childcare or Family Care: No Living arrangements: with family Additional living arrangements comments: LIVE WITH BROTHER Spiritual care concerns: No Anes - Eval Final PreProcedure Day of Procedure 12/02/23 11:19 Patient weight: normal Heart: regular rate and rhythm Lungs: clear to auscultation Airway: Mallampati scale class II Neurological: alert and oriented Last oral intake: >/= 8 hours ASA classification: IV Emergent: no
--- NOTE | 2023-12-02 11:41 | WPDHPUPDATE1 ---
History and Physical Update Update Date/Time: 12/02/23 11:41 History and Physical has been reviewed, including an updated exam of the patient. There are NO changes in the patient's condition. Risks, benefits, and alternatives have been discussed and questions answered. Patient agrees to proceed with procedure.
--- NOTE | 2023-12-02 11:41 | PM.IMHP ---
H&P: HPI History of Present Illness Date/Time: 12/02/23 11:41 Chief Complaint: umbilical hernia Narrative: 73 yo woman presents for ventral hernia repair. She reports no changes since last seen in office. Review of Systems Review of Systems: All systems reviewed & are unremarkable except as noted in HPI and below Constitutional: Constitutional: Denies chills, Denies fever(s), Denies headache(s) and Denies weight loss Eyes: Eyes: Denies change in vision ENT: Denies dizziness, Denies headache(s), Denies neck mass and Denies throat swelling Cardiovascular: Cardiovascular: Denies chest pain, Denies lightheadedness and Denies dyspnea Respiratory: Respiratory: Denies cough, Denies dyspnea and Denies wheezing Gastrointestinal: Gastrointestinal: Denies abdominal pain, Denies change in bowel habits, Denies nausea and Denies vomiting Genitourinary: Genitourinary: Denies hematuria and Denies dysuria Musculoskeletal: Musculoskeletal: Reports as per HPI Integumentary/Breasts: Skin/Breast: Reports as per HPI Neurologic: Denies dizziness and Denies headache(s) Allergic/Immunologic: Allergic/Immunologic: Denies throat swelling and Denies wheezing [facility] Past Medical History Medical History (Updated 10/07/23 @ 13:28 by Ismael Cowan MD) Anemia COPD (chronic obstructive pulmonary disease) History of TIA (transient ischemic attack) Hyperlipidemia Surgical History Surgical History History of cholecystectomy History of hysterectomy History of tonsillectomy Social History Social History Smoking packs per day: 1 Smoking cigarettes per day: 20.0 Years smoked: 45 Smoking pack-years: 45.00 Smoking status: Former smoker Tobacco type: cigarettes Alcohol intake: former Substance use: never Substance use type: does not use Last use: 11/20/2014 Do You Feel Safe in your Home?: Yes Lack of Transportation: No Lack of Food: Never True Current Housing: I Have Housing Concerned About Future Housing: No Difficulty Paying Gas/Electric Bills: No Difficulty Paying for Meds: No Currently Unemployed: No Education: High School Diploma/GED Difficulty w/ Childcare or Family Care: No Living arrangements: with family Additional living arrangements comments: LIVE WITH BROTHER Spiritual care concerns: No Meds Home Medications and Allergies Home Medications Medication Instructions Recorded Confirmed Type albuterol sulfate 90 mcg/actuation 2 puff inhalation Q4H PRN SOB 08/15/23 12/02/23 History aerosol inhaler aspirin 81 mg tablet 81 mg PO DAILY 08/15/23 12/02/23 History budesonide-formoterol HFA 160 2 puff inhalation Q12H SOB 08/15/23 11/29/23 History mcg-4.5 mcg/actuation aerosol inhaler (Symbicort) fluoxetine 20 mg capsule 20 mg PO DAILY 08/15/23 11/29/23 History omeprazole 20 mg tablet,delayed 20 mg PO DAILY 08/15/23 11/29/23 History release prednisone 5 mg tablet 5 mg PO DAILY 08/15/23 11/29/23 History rosuvastatin 20 mg tablet 20 mg PO DAILY 08/15/23 11/29/23 History trimethoprim 100 mg tablet 100 mg PO DAILY 08/15/23 11/29/23 History umeclidinium 62.5 mcg/actuation 1 inh inhalation DAILY 08/15/23 11/29/23 History blister powder for inhalation (Incruse Ellipta) ferrous sulfate 325 mg (65 mg 325 mg PO DAILY 09/27/23 11/29/23 History iron) tablet acetaminophen 650 mg 650 mg PO Q12H PRN Pain 11/29/23 11/29/23 History tablet,extended release (Tylenol Arthritis Pain) cholecalciferol (vitamin D3) 25 25 mcg PO DAILY 11/29/23 11/29/23 History mcg (1,000 unit) capsule cyanocobalamin (vitamin B-12) See Rx Instructions .Route .COMPLEX 11/29/23 11/29/23 History 1,000 mcg/mL injection solution fluticasone propionate 50 See Rx Instructions .Route 11/29/23 11/29/23 History mcg/actuation nasal .COMPLEX PRN Congestion spray,suspension
[2023-12-02] MEDS: ceFAZolin 2 GM/D5W 50 ML 2 GM/50 ML BAG IVPB (11:54)
--- NOTE | 2023-12-02 12:37 | P.OP_ITS ---
Procedure Note - Detailed Date of Procedure 12/02/23 Pre-op Diagnosis Ventral Hernia Post-op Diagnosis Same (2 cm ventral hernia) Procedure Performed Open 2 cm ventral hernia repair with 6.[address] hernia patch Surgeon Chuck Mercado DO Anesthesia General and Local (0.5% bupivacaine with epinephrine) Indications This is a 73-year-old woman who presented with a bulge in her upper abdomen that had been present for several months. She was having some discomfort associated with this and also had some nausea. She was found have a reducible ventral hernia located about 6 or 8 cm cephalad to the umbilicus. Discussions were made with the patient about treatment options and decision was made to proceed with open ventral hernia repair with mesh. Findings Open 2 cm ventral hernia repair was performed with mesh placement. The patient was found have a 2 cm ventral hernia located about 8-10 cm cephalad to the umbilicus. The hernia containing some preperitoneal fat and was reducible. The hernia sac was excised and sent to the lab for pathology. Decision was then made to repair the hernia using a 6.[address] hernia patch. No other abnormalities were noted. Description of Procedure Procedure as well as risks, benefits, and alternatives were discussed with the patient. Written consent was obtained and placed in chart prior to procedure. Patient was brought back to surgical suite. She was placed supine on operating table. She was then intubated by Anesthesia Department. Her abdomen was prepped and draped in sterile fashion using chlorhexidine prep. 0.5% bupivacaine with epinephrine was infiltrated locally around the operative area. A 4 cm transverse incision was made about 10 cm cephalad to the umbilicus using a 15 blade scalpel. Electrocautery was used for hemostasis and for dissection down through the subcutaneous fat. Hernia sac was encountered and this was carefully freed up from surrounding subcutaneous fat using electrocautery. The hernia sac was freed up all the way down to the level of the fascia. The hernia sac was excised using electrocautery. The hernia defect was then measured. This was measuring approximately 2 cm. The decision was made to use a 6.[address] hernia patch. The peritoneum was cleared under the fascia circumferentially around the hernia using blunt dissection and electrocautery. The peritoneal opening from excising the hernia sac was then closed using 3-0 Vicryl [id number] suture. Once a wide enough pocket was created for the mesh, the mesh was then placed within this preperitoneal pocket and laid out fl at centered on the hernia defect. The mesh appeared to be sitting in proper position. The mesh was then secured to the fascia as the fascia was closed using 0 Ethibond [id number] sutures. A total of 3 sutures were placed transversely to secure the mesh and close the fascia. The repair was inspected and appeared secure. 0.5% bupivacaine with epinephrine was infiltrated around the fascia and subcutaneous space. Liliana's fascia was then reapproximated using 3 0 Vicryl simple interrupted sutures. The skin was approximated using 4 Monocryl running subcuticular suture. Exofin glue was then applied on top. The patient was then awakened from anesthesia, extubated, and transferred to recovery. Implants 6.[address] hernia patch Estimated Blood Loss 5 Pathology Yes (Ventral hernia sac) Complications No immediate complications Condition Stable Disposition Same day [facility] Billing Surgery - Charge Forward: Surgery Billing
[2023-12-02] MEDS: oxyCODONE HCL (*CRX) 5 MG TAB IR PO (13:58)
== END 2023-12-02 14:43 | disposition home or self-care (01) ==
PROVIDERS: PCP Internal Medicine; Visit Provider Surgery
PROC: 0WQF0ZZ Repair Abdominal Wall, Open Approach (ICD-10-PCS; CPT 49591; principal; 2023-12-02 12:00)
DX: K43.9 Ventral hernia without obstruction or gangrene (principal); E78.5 Hyperlipidemia, unspecified; D64.9 Anemia, unspecified; J44.9 Chronic obstructive pulmonary disease, unspecified; Z79.51 Long term (current) use of inhaled steroids; Z79.82 Long term (current) use of aspirin; Z79.52 Long term (current) use of systemic steroids; Z98.890 Other specified postprocedural states; Z90.49 Acquired absence of other specified parts of digestive tract; Z87.891 Personal history of nicotine dependence; Z86.73 Personal history of transient ischemic attack (TIA), and cerebral infarction without residual deficits
CPT/HCPCS: 49591; 36415; 80048; 85014; 85018; 85610; 85730; 88302; A9270; C1781; J0690; J1100; J1170; J1885; J2405; J2704; J3010; J7120

== ENCOUNTER 2024-03-30 07:21 | Outpatient (CLI) | payer MEDICARE, SELFPAY ==
--- NOTE | ~2024-03-30 | MR_ITS ---
MRI of the left hip Clinical history: Pain Technique: Coronal T1-weighted, T2-weighted, and proton-density fat-sat images, and axial T1-weighted and proton-density fat-sat images were acquired through the pelvis. Coronal T2-weighted images and c oronal, axial, and sagittal proton-density fat-sat images were acquired through the left hip. Findings: There is no fracture or avascular necrosis right hip. Bone marrow signals the proximal femo ra are unremarkable. There is focal subchondral marrow edema at the superomedial aspect of the left a cetabulum, likely reactive. No other bone marrow signal abnormality seen. There is high-grade chondro malacia along the medial aspect of the left hip joint, and medial joint space narrowing. There is mod erate chondral malacia the medial aspect of the right hip joint. Small joint effusion present. No def inite acetabular labral tear identified. Visualized musculature of the pelvis and left hip is unremarkable. No muscle atrophy or edema. No sof t tissue mass or fluid collection. No bursitis. IMPRESSION: Advanced degenerative change at the medial aspect of the left hip joint with [id number] reacti ve left hip joint effusion. Moderate degenerative change at the medial aspect of the right hip joint. Reviewed, dictated and finalized at location . NICAL SERVICES ANALYST IMPRESSION: Advanced degenerative change at the medial aspect of the left hip joint with sm [id number] reactive left hip joint effusion. Moderate degenerative change at the medial aspect of the right hip joint.
== END 2024-03-30 07:22 | disposition home or self-care (01) ==
PROVIDERS: PCP Internal Medicine; Visit Provider Orthopaedic Surgery
DX: M16.12 Unilateral primary osteoarthritis, left hip (principal)
CPT/HCPCS: 73721

== ENCOUNTER 2024-11-08 09:18 | Outpatient (CLI) | payer MEDICARE, MEDICAID, SELFPAY ==
--- NOTE | ~2024-11-08 | MR_ITS ---
MRI of the left shoulder Technique: Axial proton-density fat-sat images, coronal proton density fat-sat and T2 fat-sat images, and sagittal T1-weighted and T2 fat-sat images were acquired. Clinical History: Pain Findings: There is minimal degenerative changes AC joint. No subacromial spur. Coracoclavicular, catracho coacromial, and coracohumeral ligaments are probably intact. There is a 5 mm high-grade articular surface partial tear at the very anterior, distal supraspinatus tendon insertion. There is additional moderate grade partial thickness tearing at the central portion of the supraspinatus tendon. No definite full-thickness tear is seen. Infraspinatus tendon is intact . Subscapularis tendon is intact. Tendon of long head of the biceps is intact. No labral tear evident. Inferior glenohumeral ligament is intact. There is small glenohumeral joint effusion. There is promin ent distention of the subacromial/subdeltoid bursa. There is mild chondromalacia of the medial aspect of the humeral head. No muscle atrophy or edema evident. Impression: 5 mm high-grade articular surface partial tear at the anterior, distal supraspinatus tendon insertion . Additional moderate grade partial thickness tear at the central aspect of the supraspinatus tendon. No definite full-thickness tear seen. Prominent fluid distention of the subacromial/subdeltoid bursa most likely because bursitis. Mild degenerative changes, as above. Reviewed, dictated and finalized at [facility]. Impression: 5 mm high-grade articular surface partial tear at the anterior, distal supraspi natus tendon insertion. Additional moderate grade partial thickness tear at the central aspect of the supraspinatus tendon. No definite full-thickness tear se en. Prominent fluid distention of the subacromial/subdeltoid bursa most likely mira use bursitis. Mild degenerative changes, as above.
== END 2024-11-08 09:19 | disposition home or self-care (01) ==
LOC: MICIMG 09:19
PROVIDERS: PCP Internal Medicine; Visit Provider Orthopaedic Surgery
DX: M75.112 Incomplete rotator cuff tear or rupture of left shoulder, not specified as traumatic (principal); M19.012 Primary osteoarthritis, left shoulder
CPT/HCPCS: 73221

== ENCOUNTER 2024-11-24 12:17 | Emergency (ER) | payer MEDICARE, MEDICAID, SELFPAY ==
--- NOTE | ~2024-11-24 | XR_ITS ---
CHEST RADIOGRAPH CLINICAL HISTORY: Left was lower ribs pain . COMPARISON: None available TECHNIQUE: Single portable view of the chest. FINDINGS Large hiatal hernia. The remainder of the cardiomediastinal silhouette is otherwise unremarkable. Platelike atelectasis within the left mid to lower lung field. Calcified granuloma within the right mid to lower lung field. Increased interstitial markings are identified bilaterally, findings suggesting mild pulmonary vascul ar congestion. The lungs are otherwise clear. IMPRESSION: Mild pulmonary vascular congestion with platelike atelectasis in the left mid to lower lung field. Redemonstration of a large hiatal hernia. Reviewed, dictated and finalized at location A. IMPRESSION: Mild pulmonary vascular congestion with platelike atelectasis in the left mid t o lower lung field. Redemonstration of a large hiatal hernia.
--- NOTE | ~2024-11-24 | CT_ITS ---
EXAMINATION: CTA chest PE abdomen pel DATE: 11/24/2024 14:56 INDICATION: LEFT LOWER CHEST PAIN TECHNIQUE: Computed tomography angiography (CTA) of the chest was performed with 100 mL Omnipaque-350 intravenous contrast timed to evaluate the pulmonary arteries, followed by portal venous phase imagi ng of the abdomen and pelvis. Coronal maximum intensity projection 3D-reconstructions were created by the technologist. The dose-length product (DLP) was 816.02 mGy-cm. Automated exposure control and it erative reconstruction technique were employed. COMPARISON: X-ray chest, same date; CT abdomen pelvis 09/22/2023. FINDINGS: CHEST: Lung parenchyma and airways: Patent airways. Moderate emphysematous change. Bibasilar scar/atelectasi s. Calcified bilateral lower lobe granulomas. Pleura: Unremarkable. Thoracic inlet, axillae and chest wall: No thyroid or soft tissue mass. Thoracic aorta: No significant dilation. No dissection. Moderate atherosclerotic calcification. Mediastinum: Large hiatal hernia containing the majority of the stomach. Calcified lymph nodes. Heart and pericardium: Normal. Coronary artery calcifications: Moderate. Thoracic bones: No acute osseous finding. Old left posterior 10th rib fracture. Pulmonary arteries: Study quality: Late contrast phase, but with sufficient pulmonary arterial enhanc ement. No pulmonary emboli detected. ABDOMEN/PELVIS: Liver: Normal. Biliary/Gallbladder: Gallbladder is absent. Mild common bile duct dilation, stable, likely secondary to cholecystectomy. Pancreas: No mass or duct dilation. Spleen: Normal. Adjacent splenule. Adrenals:No mass. Kidneys: No suspicious mass, obstructing stone, or hydronephrosis. Subcentimeter left midpole hypoden sity, too small to characterize but most likely represents a cyst. GI tract: No small or large bowel dilation. Normal appendix. Diverticulosis without diverticulitis. Mesentery/Peritoneum: No ascites, mass, or free air. Retroperitoneum: No mass. Atherosclerotic calcifications of intra-abdominal arterial vessels. 7 mm ec centric filling defect in the mid SMA, adjacent to a wall calcification, just distal to the first carla or branch. A 4 mm eccentric filling defect is also noted slightly more distally, also adjacent to a w all calcification. Pelvis: Pelvic organs are within normal limits. Soft Tissues: Small uncomplicated appearing fat-containing umbilical hernia. Abdominopelvic bones: No acute osseous finding. Old right pelvic fractures. IMPRESSION: No CT evidence of acute pulmonary embolus. 7 mm and 4 mm eccentric filling defects in the SMA, may represent nonocclusive calcified and noncalci fied atherosclerotic plaque versus calcified plaque with small adjacent nonocclusive thrombi. There i s adequate SMA enhancement more distally, and no change in the bowel wall enhancement pattern. Otherwise, no acute process detected in the chest, abdomen, or pelvis.. Reviewed, dictated and finalized at location K. IMPRESSION: No CT evidence of acute pulmonary embolus. 7 mm and 4 mm eccentric filling defects in the SMA, may represent nonocclusive calcified and noncalcified atherosclerotic plaque versus calcified plaque with small adjacent nonocclusive thrombi. There is adequate SMA enhancement more dis tally, and no change in the bowel wall enhancement pattern. Otherwise, no acute process detected in the chest, abdomen, or pelvis..
--- OUTSIDE RECORDS SUMMARY | 2024-11-24 12:18 | XMS_ITS | Clinical Summary ---
Author Organization [facility] Address [address] [place] [id number] Care Team Providers Care Flash Welder Name Role Phone Unavailable Primary Care Provider Unavailabl e Social History Tobacco Use Types Packs/Day Years Used Date Smoking Tobacco: Never Assessed Comments Unknown Sex and Gender Information Value Date Recorded Sex Assigned at Not on file Legal Sex Female 8:21 PM CDT Gender Identity Not on file Sexual Orientation Not on file Last Filed Vital Signs Vital Sign Reading Time Taken Comments Blood Pressure 120/88 01/23/2016 7:23 AM CDT Pulse 98 01/23/2016 7:23 AM CDT Temperature - - Respiratory Rate - - Oxygen Saturation - - Inhaled Oxygen Concentration - - Weight 75.8 kg (167 lb) 01/23/2016 7:23 AM CDT Height 167.6 cm (5' 6) 01/23/2016 7:23 AM CDT Body Mass Index 26.95 01/23/2016 7:23 AM CDT Plan of Treatment Health Maintenance Due Date Last Done Comments Colorectal Cancer Screening Colonoscopy (10 Years) 1951 Hepatitis C 1969 DTaP, Tdap and Td Vaccines ( 1 - Tdap) 1970 Mammogram Screening 1991 Pneumococcal Vaccine: 50+ Ye ars (1 of 1 - PCV) 2001 Zoster Vaccines (1 of 2) 2001 Dexa Scan (General) 2016 COVID-19 Vaccine ( - 2023-2 5 season) 2024 RSV Immunization or 60+ Years (1 - 1-dose 75+ series) 2026 Meningococcal B Vaccine Aged Out No l onger eligible based on patient's age to complete this topic Meningococcal Vaccine Aged Out No ty maria c eligible based on patient's age to complete this topic RSV Immunizations Under 20 Months Aged Out No longer eligible based on patient's age to complete this topic
--- OUTSIDE RECORDS SUMMARY | 2024-11-24 12:18 | XMS_ITS | Encounter Summary ---
Author Organization [facility] Address [address] [place] [address] Phone Care Team Providers Care Veneer Stapler Name Role Phone Damien Fleming MD Primary Care Provider [phone] Rohit Hill MD Unavailable [phone] Encounter Details Date Type Department Care Team (Late st Contact Info) Description 05/04/2024 Orders Only [facility] Scanning, Provider Social History Tobacco Use Types Packs/Day Years Used Date Smoking Tobacco: Former Cigarettes 1 46 1 966 - 2011 Smokeless Tobacco: Never Comments:smoked 40-50 years Vapes off and on AUDIT-C Answer Date Recorded Q1: How often do you have a drink containing alc ohol? 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) Not on file Not on file Not o n file documented as of this encounter Plan of Treatment Not on file documented as of this encounter Procedures Procedure Name Priority Date/Time Associated Diagnosis Comments SCAN - LABS 05/04/2024 documented in this encounter Results * SCAN - LABS (05/04/2024) us Provider Scanning Final Result documented in this encounter Visit Diagnoses Not on filedocumented in this encounter Care Teams Veneer Stapler Relationship Specialty Start Date End Date Damien Fleming MD PCP - General Internal Medicine 05/28/21 Rohit Hill MD Referring Physician Ophthalmology 05/28/21 documented as of this encounter
--- OUTSIDE RECORDS SUMMARY | 2024-11-24 12:19 | XMS_ITS | Clinical Summary ---
Author Organization [facility] Address [address] [place] [address] Phone Care Team Providers Care Strategy Specialist Name Role Phone Harrison Bartlett MD Primary Care Provider Allergies No known active allergies Medications traMADol (ULTRAM) 50 MG Tablet Take 50 mg by mouth 2 times daily as needed for Pain. Active lisinopril (PRINIVIL, ZESTRIL) 20 MG Tablet Take 20 mg by mouth daily. Active oxybutynin (DITROPAN) 5 MG Tablet Take 5 mg by mouth 2 times daily. Active naproxen (NAPROSYN) 500 MG Tablet Take 500 mg by mouth 3 times daily as needed. Active FLUoxetine (PROZAC) 20 MG Capsule Take 20 mg by mouth daily. Active omeprazole (PRILOSEC) 20 MG CAPSULE DELAYED RELEASE Take 20 mg by mouth daily. Active acetaminophen (TYLENOL 8 HOUR) 650 MG Tablet Controlled Release Take 650 mg by mouth every 6 hours as needed for Pain. Active Cholecalciferol (VITAMIN D3) 1000 UNIT Tablet Take by mouth daily. Active Social History Tobacco Use Types Packs/Day Years Used Date Smoking Tobacco: Former Alcohol Use Standard Drinks/Week Comments No 0 (1 standard drink = 0.6 oz pur e alcohol) Comments Unknown Sex and Gender Information Value Date Recorded Sex Assigned at Not on file Legal Sex Female 5:42 PM CDT Gender Identity Not on file Sexual Orientation Not on file Last Filed Vital Signs Vital Sign Reading Time Taken Comments Blood Pressure 124/72 02/10/2016 12:51 PM CDT Pulse 90 02/10/2016 12:51 PM CDT Temperature 36 C (96.8 F) 02/10/2016 12:51 PM CDT Respiratory Rate 18 02/10/2016 12:51 PM CDT Oxygen Saturation 96% 02/10/2016 12:51 PM CDT Inhaled Oxygen Concentration - - Weight 75.8 kg (167 lb) 02/10/2016 12:51 PM CDT Height 167.6 cm (5' 6) 02/10/2016 12:51 PM CDT Body Mass Index 26.95 02/10/2016 12:51 PM CDT Plan of Treatment Health Maintenance Due Date Last Done Comments Hepatitis C Virus (HCV) Screening 1950 Cologuard 1996 Colonoscopy 1996 Colorectal Cancer Screening 1996 Immunochemical Fecal Occult Blood 1996 Zoster Immunization (1 of 2) 2001 SARS-COV-2 Immunization ( season) 2024 04/09/2021, 08/13/2020, 07/16/2020 Influenza Immunization (#1) 2025 100 10/2020, 03/26/2019, 04/13/2017 Respiratory Syncytial Virus (RSV) Immunization (Adult) (1 - 1-dose 75+ series) 2026 Pneumococcal Immunization (5 0+ years) Completed 08/14/2018, 02/09/2017 Pneumococcal Immunization Combined Discontinued 08/14/2018, 02/09/2017 DTaP/Tdap/Td Immunization Discontinued 2018, 08/15/2018 TdaP Immunization Completed 08/17/2018, 08/15/2018 Hepatitis B Immunization Aged Out No longer eligible based on patient's age to complete this topic Human Papillomavirus (HPV) Immunization Aged Out No longer eligible based on patient's age to complete this topic Meningococcal Immunization (ACWY) Aged Out No longer eligible based on patient's age to complete this topic Rotavirus Immunization Aged Out No lo nger eligible based on patient's age to complete this topic Insurance MEDICARE C [employer]ET[employer] Care Teams Strategy Specialist Relationship Specialty Start Date End Date Harrison Bartlett MD [address] [place] [address] PCP - General Internal Medicine 09/19/15
--- OUTSIDE RECORDS SUMMARY | 2024-11-24 12:19 | XMS_ITS | Clinical Summary ---
Author Organization [facility] Address [address] [place] [address] Care Team Providers Care Plant Protection Officer Name Role Phone Damien Fleming MD Primary Care Provider [phone] Rohit Hill MD Unavailable [phone] Allergies Active Allergy Reactions Criticality Noted Date Comments Lisinopril Anaphylaxis,Swelling High 02/04/2023 Medications omeprazole (PriLOSEC) 20 mg capsuleIndications: Treatment of Non-Bleeding Gastric Disorder Take 1 capsule (20 mg total) by mouth nightly Active cyanocobalamin (Vitamin B-12) 1,000 mcg/mL injectionIndication s:Vitamin B12 Deficiency Inject 1 mL (1,000 mcg total) into the muscle as instructed every 30 (thirty) days First week of the month Active Prolia 60 mg/mL syringeIndications: postmenopausal osteoporosis and high fracture risk Inject 60 mL (3,600 mg total) under the skin every 6 (six) months 08/05/19 24 Active rosuvastatin (CRESTOR) 20 mg tabletIndications:h yperlipidemia Take 1 tablet (20 mg total) by mouth nightly Active FLUoxetine (PROzac) 40 mg capsuleIndications: depression Take 1 capsule (40 mg total) by mouth nightly 12/08/19 24 Active trimethoprim (TRIMPEX) 100 mg tabletIndications:P revention of Bacterial Urinary Tract Infection Take 1 tablet (100 mg total) by mouth nightly Active aspirin 81 mg enteric coated tabletIndications:C erebral Thromboembolism Prevention,preventi on of thrombosis Take 1 tablet (81 mg total) by mouth nightly Active ferrous sulfate ER 324 mg (65 mg iron) EC tabletIndications:I michaelle Deficiency Anemia Take 1 tablet (324 mg total) by mouth lathe spotter before breakfast Active ascorbic acid (vitamin C) 1,000 mg tabletIndications:s upplement Take 1 tablet (1,000 mg total) by mouth lathe spotter before breakfast Active cholecalciferol (Vitamin D3) 2000 unit capsuleIndications: Vitamin D Deficiency Take 1 capsule (2,000 Units total) by mouth lathe spotter before breakfast Active cetirizine (ZyrTEC) 10 mg tabletIndications:A llergic Rhinitis Take 1 tablet (10 mg total) by mouth lathe spotter before breakfast Active guar gum (CHEWABLE FIBER ORAL)Indications:co nstipation Take 2 tablet/chew tab by mouth daily as needed (constipation) Active oxygenIndications:D yspnea Administer 2 L/min into each nostril as needed (SOB) Active predniSONE (DELTASONE) 5 mg tablet TAKE 1 TABLET BY MOUTH EVERY DAY 90 tablet 3 08/14/19 25 Active fluticasone propionate (FLONASE) 50 mcg/actuation nasal spray SPRAY 2 SPRAYS INTO EACH NOSTRIL EVERY DAY 48 mL 3 08/24/19 25 Active albuterol HFA (PROVENTIL HFA,VENTOLIN HFA,PROAIR HFA) 90 mcg/actuation inhaler Inhale 2 puffs every 4 (four) hours as needed for wheezing 8.5 each 11 09/28/19 25 Active umeclidinium (Incruse Ellipta) 62.5 mcg/actuation blister with device Inhale 1 puff (62.5 mcg total) daily 90 each 3 09/28/19 25 Active predniSONE (DELTASONE) 20 mg tablet Take 2 tablets (40 mg) by mouth daily for 5 days 10 tablet 09/28/19 25 Active budesonide-formoter oL (SYMBICORT) 160-4.5 mcg/actuation inhalerIndications: Chronic obstructive pulmonary disease, unspecified COPD type (HCC) Inhale 2 puffs 2 (two) times a day 10.2 each 11 10/23/19 25 Active Active Problems Problem Noted Date Diagnosed Date Obstructive sleep apnea 08/23/2023 Assessment & Plan (08/31/2024 11:51 AM CDT): Positive sleep study with AHI 26.5 Continue CPAP therapy with all sleep and follow-up with sleep medicine We have discussed the risks of uncorrected sleep apnea. Assessment & Plan (03/02/2024 11:46 AM CDT): Positive sleep study with AHI 26.5 Continue CPAP therapy with all sleep and follow-up with sleep medicine Assessment & Plan (08/23/2023 9:32 PM CDT): Positive sleep study with AHI 26.5 She has an appointment with sleep medicine next week Chronic obstructive pulmonary disease 08/23/2023 Assessment & Plan (08/31/2024 11:53 AM CDT): Continue Incruse Ellipta once daily at the same time and Symbicort 160-4.5 two puffs twice daily with AeroChamber Albuterol 2 puffs every 4 hours as needed only, discussed indications for use. She would benefit from pulmonary rehab I do not see an A1AT We have discussed signs and symptoms that would require earlier evaluation or change to her plan of care Assessment & Plan (03/02/2024 11:45 AM CDT): Continue Incruse Ellipta and Symbicort Albuterol as needed only, discussed indications for use. She would benefit from pulmonary rehab We have discussed vaccinations and timing Assessment & Plan (08/23/2023 9:31 PM CDT): Continue Incruse Ellipta and Symbicort Albuterol as needed only, discussed indications for use. She would benefit from pulmonary rehab Current chronic use of systemic steroids 024 Assessment & Plan (08/31/2024 11:52 AM CDT): She remains on Prednisone 5 mg po daily, managed by her neurologist She is aware she should have bone density screening and supplement with calcium and vitamin-D She has not had an exacerbation requiring increase in dosage Assessment & Plan (03/02/2024 11:46 AM CDT): She remains on Prednisone 5 mg po daily, managed by Neurology She is aware she should have bone density screening and supplement with calcium and vitamin-D Assessment & Plan (08/23/2023 9:31 PM CDT): She remains on Prednisone 5 mg po daily Cortisol level was low Continue to follow with Neurology Nicotine dependence in remission 08/23/2023 Assessment & Plan (08/31/2024 11:51 AM CDT): There were no new or worrisome pulmonary nodules on her screening in March of 2024 She will be due for repeat low-dose CT of the chest in March of 2025 Assessment & Plan (03/02/2024 11:46 AM CDT): Annual screening due September 2023 Assessment & Plan (08/23/2023 9:35 PM CDT): Annual screening due September 2023 Chronic respiratory failure with hypoxia, on home O2 therapy 08/23/2023 Assessment & Plan (08/31/2024 11:52 AM CDT): Continue supplemental oxygen as ordered for saturations 90% or greater Also use this bleed in with CPAP during all sleep She is aware of the risks of hypoxia Assessment & Plan (03/02/2024 11:45 AM CDT): Continue supplemental oxygen as ordered for saturations 90% or greater She is aware of the risks of hypoxia Assessment & Plan (08/23/2023 9:35 PM CDT): Continue supplemental oxygen as ordered Hypersomnolence 07/07/2023 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 She has an appointment to see specialty neuro upcoming. Assessment & Plan (12/30/2021 10:50 AM CDT): - Symptoms initially well-controlled on mestinon BID (supposed to be TID) but now having R eyelid ptosis. Has been reluctant to increase dose because of nausea however has not been using robinul reliably. Has been having some leg and hand cramping, worse at night. - No systemic nor bulbar symptoms - Will increase mestinon to every 4 hours. Stressed importance of taking with robinul to limit GI side effects - If patient does not tolerate increased mestinon dosing (ie GI side effects, cramping) will consider prednisone - Strict return precautions discussed for problems breathing, swallowing, speaking, or for systemic weakness. Patient will call if she develops these symptoms. Encounters Date Type Department Care Team Description 09/27/2024 Telephone [facility] Pulmonary at [address] [place] [phone] Luma Castro LPN 08/31/2024 10:00 AM CDT Office Visit [facility] Pulmonary at [address] [place] [address] Onelia Walker NP Chronic obstructive pulmonary disease, unspecified COPD type (HCC) (Primary Dx); Chronic respiratory failure with hypoxia, on home O2 therapy (HCC); Current chronic use of systemic steroids; Obstructive sleep apnea; Cigarette nicotine dependence in remission from Last 3 Months Surgical History Surgery Date Site/Laterality Comments COLONOSCOPY HYSTERECTOMY HERNIA REPAIR umbilical TONSILLECTOMY LUMBAR SPINE SURGERY reports scraped something--denies fusion CHOLECYSTECTOMY Medical History Medical History Date Comments Hypertension Depression COPD (chronic obstructive pulmonary disease) (HC C) Obstructive sleep apnea 08/23/2023 Current chronic use of systemic steroids 024 Nicotine dependence in remission 08/23/2023 Myasthenia gravis (HCC) 2022 Family History Medical History Relation Name Comments Epilepsy Brother Coronary artery disease Sister Epilepsy Sister Anesthesia problems Neg Hx Relation Name Status Comments Brother Sister Social History Tobacco Use Types Packs/Day Years Used Date Smoking Tobacco: Former Cigarettes 1 46 1 966 - 2012 Passive Smoke Exposure: Past Smokeless Tobacco: Never Tobacco Cessation:Counseling Given: Not Answered Comments:smoked 40-50 years Vapes off and on AUDIT-C Answer Date Recorded Q1: How often do you have a drink containing alcohol? Never 06/26/2024 Q2: How many drinks containi ng alcohol do you have on a typical day when you are drinking? Patient does not drink Q3: How often do you have si x or more drinks on one occasion? Never 06/26/2024 Personal Safety Answer Date Recorded Have you ever been in or are you currently in a harmful physical or emotional relationship or is someone making you feel afraid or unsafe? 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 on file Not on file Not o n file Obstetrics History Last Filed Vital Signs Vital Sign Reading Time Taken Comments Blood Pressure 134/72 08/31/2024 10:09 AM CDT Pulse 88 08/31/2024 10:09 AM CDT Temperature 36.7 C (98 F) 08/16/2024 2:40 PM CDT Respiratory Rate 16 08/31/2024 10:0 9 AM CDT Oxygen Saturation 95% 08/31/2024 10: 09 AM CDT Inhaled Oxygen Concentration - - Weight 82.5 kg (181 lb 12.8 oz) 025 10:09 AM CDT Height 166.4 cm (5' 5.5) 08/31/2024 10 :09 AM CDT Body Mass Index 29.79 08/31/2024 10:09 AM CDT Plan of Treatment Health Maintenance Due Date Last Done Comments Breast Cancer Screening-Mammogram 1950 Colon Cancer Screening-Colonoscopy 1950 Depression Screening 1950 Hepatitis C Screening 1950 Osteoporosis Screening-Bone Density Scan 1951 Hepatitis B Screening 1969 Zoster Vaccine (1 of 2) 2001 Well Visit 65+ 2016 Covid-19 Vaccine (2023-2 5 season) 2024 04/09/2021, 08/13/2020, 07/16/2020 Lung Cancer Screening 03/29/2025 03/28/2024 Fall Risk Assessment 06/26/2025 06/26/2024 DTaP/Tdap/Td Vaccine (3 - Td or Tdap) 08/17/2028 08/17/2018, 08/15/2018 Pneumococcal vaccine 65+ Completed 08/14/2018, 01/22 Influenza Vaccine Completed 06/29/2024, , 03/26/2019, Additional history exists Procedures Procedure Name Priority Date/Time Associated Diagnosis Comments CT LUNG CANCER SCREENING Schedule Routine, Read Routine (OP Routine) 03/28/2024 11:28 AM LOKIE ENGINEER Cigarette nicotine dependence, uncomplicated from Last 3 Months or Most Recently Relevant to Health Maintenance Results * CT Lung Cancer Screening (03/28/2024 11:28 AM LOKIE ENGINEER) Anatomical Region Laterality Modality Chest N/A Computed Tomogra phy 04/02/2024 5:52 AM LOKIE ENGINEER Narrative 04/02/2024 5:59 AM LOKIE ENGINEER EXAM DESCRIPTION: CT LUNG CANCER SCREENING REASON FOR STUDY: Screening CT of the chest in a former smoker with a 46 pack year smoking history. Additional history: None. TECHNIQUE: Low dose CT scan of the chest was performed without intravenous contrast using helical scanning technique. The exam extends from the lung apices through the lung bases. Automatic exposure control was used as a dose optimization technique. NOTE: This study was performed for the specific purposes of lung cancer screening and is not an alternative to diagnostic chest CT. RADIATION DOSE: CT dose index volume (CTDIvol) = 1.79 mGy COMPARISON: 06/12/2021 FINDINGS: SMOKING RELATED LUNG DISEASE: Mild to moderate upper lobe predominant emphysema, stable. Mild pleuroparenchymal scarring, stable. There is central bronchial wall thickening noted. LUNG NODULES: Granulomas present within the right lower lobe. There are a few scattered tiny nodules. For instance a 2 mm subpleural nodule within the posterior left lower lobe on image number 94 no suspicious nodule within either lung. CORONARY ARTERY CALCIFICATION: Present. OTHER: No pneumonic consolidation. There is subsegmental scarring and atelectasis most evident within the lingula and lung bases. Fat containing left Bochdalek's hernia is noted. The central airways are patent. Minimal secretions are noted. There is no effusion or pneumothorax. The thyroid gland is grossly unremarkable. There is no mediastinal or hilar adenopathy. Postinflammatory calcifications in the subcarinal and hilar stations. There is some thickening of the distal esophagus. There is a large hiatal hernia, stable from prior examination. There may be some wall thickening of the wall of the stomach within the hernia. There is no evidence of outlet obstruction. The heart is normal in size without pericardial effusion. Atherosclerotic changes of the aorta without aneurysm. No axillary lymphadenopathy. The chest wall is unremarkable. Visualized upper abdomen reveals granulomas within the spleen. Atherosclerotic vascular calcifications are present. Cholecystectomy changes are noted. Diverticulosis. Splenule again noted medial to the spleen. There is thoracic spondylosis and degenerative disc disease. No acute osseous abnormality IMPRESSION: Mild to moderate upper lobe predominant emphysema, stable. Scattered tiny pulmonary nodules, stable. No suspicious nodularity. Large hiatal hernia, stable. There may be some wall thickening of the stomach within the hernia. Correlate with any symptoms of gastritis. Endoscopy can be considered for further evaluation as warranted clinically Coronary artery calcifications. Additional findings as above. Lung-RADS category 2S: Benign appearance or behavior. Finding other than a pulmonary nodule which is potentially clinically significant. Recommendation: Low dose Screening CT of chest in 12 months. THIS IS AN ELECTRONICALLY VERIFIED FINAL REPORT 04/02/2024 5:59 AM - Electronically signed by Elizabeth Biggs M.D. TW: LUIS Report ID: [id number] Reading Location: [id number] Procedure Note Elizabeth Biggs MD - 04/02/2024 EXAM DESCRIPTION: CT LUNG CANCER SCREENING REASON FOR STUDY: Screening CT of the chest in a former smoker with a46 pack year smoking history. Additional history: None. TECHNIQUE: Low dose CT scan of the chest was performed without intravenous contrast using helical scanning technique. The exam extends from the lung apices through the lung bases. Automatic exposure control was used as adose optimization technique. NOTE: This study was performed for the specific purposes of lung cancer screening and is not an alternative to diagnostic chest CT. RADIATION DOSE: CT dose index volume (CTDIvol) = 1.79 mGy COMPARISON: 06/12/2021 FINDINGS: SMOKING RELATED LUNG DISEASE: Mild to moderate upper lobe predominant emphysema, stable. Mild pleuroparenchymal scarring, stable. There iscentral bronchial wall thickening noted. LUNG NODULES: Granulomas present within the right lower lobe. Thereare a few scattered tiny nodules. For instance a 2 mm subpleural nodule withinthe posterior left lower lobe on image number 94 no suspicious nodule within either lung. CORONARY ARTERY CALCIFICATION: Present. OTHER: No pneumonic consolidation. There is subsegmental scarring and atelectasis most evident within the lingula and lung bases. Fatcontaining left Bochdalek's hernia is noted. The central airways are patent.Minimal secretions are noted. There is no effusion or pneumothorax. The thyroid gland is grossly unremarkable. There is no mediastinal or hilaradenopathy. Postinflammatory calcifications in the subcarinal and hilar stations.There is some thickening of the distal esophagus. There is a large hiatalhernia, stable from prior examination. There may be some wall thickening of thewall of the stomach within the hernia. There is no evidence of outletobstruction. The heart is normal in size without pericardial effusion.Atherosclerotic changes of the aorta without aneurysm. No axillary lymphadenopathy. The chest wall is unremarkable. Visualized upper abdomen reveals granulomas within the spleen. Atherosclerotic vascular calcifications are present. Cholecystectomy changes are noted. Diverticulosis. Splenule again noted medial to the spleen. There is thoracic spondylosis and degenerative disc disease. No acute osseous abnormality IMPRESSION: Mild to moderate upper lobe predominant emphysema, stable. Scattered tiny pulmonary nodules, stable. No suspicious nodularity. Large hiatal hernia, stable. There may be some wall thickening of thestomach within the hernia. Correlate with any symptoms of gastritis. Endoscopycan be considered for further evaluation as warranted clinically Coronary artery calcifications. Additional findings as above. Lung-RADS category 2S: Benign appearance or behavior. Finding other thana pulmonary nodule which is potentially clinically significant. Recommendation: Low dose Screening CT of chest in 12 months. THIS IS AN ELECTRONICALLY VERIFIED FINAL REPORT 04/02/2024 5:59 AM - Electronically signed by Elizabeth Biggs M.D. TW: LUIS Report ID: [id number] Reading Location: [id number] us Onelia Walker DRONE SOFTWARE DEVELOPMENT ENGINEER IMG CT PROCEDURES Final Res ult from Last 3 Months or Most Recently Relevant to Health Maintenance Insurance [facility] [employer] [facility] [employer] Care Teams Plant Protection Officer Relationship Specialty Start Date End Date Damien Fleming MD PCP - General Internal Medicine 1/6/22 Rohit Hill MD Referring Physician Ophthalmology 05/28/21
--- OUTSIDE RECORDS SUMMARY | 2024-11-24 12:19 | XMS_ITS | Referral Summary ---
Author Organization [facility] Address [address] [place] [address] Care Team Providers Care Ampoule Examiner Name Role Phone Damien Fleming MD Primary Care Provider [phone] Rohit Hill MD Unavailable [phone] Encounters Date Type Department Care Team Description 09/27/2024 Telephone [facility] Pulmonary at [address] [place] [phone] Luma Castro LPN 08/31/2024 10:00 AM CDT Office Visit [facility] Pulmonary at [address] [place] [phone] Onelia Walker NP Chronic obstructive pulmonary disease, unspecified COPD type (HCC) (Primary Dx); Chronic respiratory failure with hypoxia, on home O2 therapy (HCC); Current chronic use of systemic steroids; Obstructive sleep apnea; Cigarette nicotine dependence in remission from Last 3 Months Allergies Active Allergy Reactions Criticality Noted Date [...] 1 tablet (324 mg total) by mouth recoil spring winder before breakfast Active ascorbic acid (vitamin C) 1,000 mg tabletIndications:s upplement Take 1 tablet (1,000 mg total) by mouth recoil spring winder before breakfast Active cholecalciferol (Vitamin D3) 2000 unit capsuleIndications: Vitamin D Deficiency Take 1 capsule (2,000 Units total) by mouth recoil spring winder before breakfast Active cetirizine (ZyrTEC) 10 mg tabletIndications:A llergic Rhinitis Take 1 tablet (10 mg total) by mouth recoil spring winder before breakfast Active guar gum (CHEWABLE FIBER [...] rehab Current chronic use of systemic steroids Assessment & Plan (08/31/2024 11:52 AM CDT): [...] will call if she develops these symptoms. 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 on file Not on file Not o n file Last Filed Vital Signs Vital Sign [...] 08/31/2024 10:09 AM CDT Plan of Treatment Not on file Procedures Procedure Name Priority Date/Time Associated Diagnosis Comments CT LUNG CANCER SCREENING Schedule Routine, Read Routine (OP Routine) 03/28/2024 11:28 AM DIRECTOR OF DEMENTIA OPERATIONS Cigarette nicotine dependence, uncomplicated from Last 3 Months or Most Recently Relevant to Health Maintenance Results * CT Lung Cancer Screening (03/28/2024 11:28 AM DIRECTOR OF DEMENTIA OPERATIONS) Anatomical Region Laterality Modality Chest N/A Computed Tomogra phy 04/02/2024 5:52 AM DIRECTOR OF DEMENTIA OPERATIONS Narrative 04/02/2024 5:59 AM DIRECTOR OF DEMENTIA OPERATIONS EXAM DESCRIPTION: CT LUNG CANCER SCREENING REASON [...] Electronically signed by Elizabeth Biggs M.D. TW: TW Report ID: [id number] Reading Location: [id number] Procedure Note Biggs, Elizabeth Delatorre MD - 04/02/2024 EXAM DESCRIPTION: CT LUNG [...] Elizabeth Biggs M.D. TW: LUIS Report ID: [id number] Reading Location: [place] [id number] Onelia Walker JAVA SYBASE DEVELOPER IMG CT PROCEDURES Final Res ult from Last 3 Months or Most Recently Relevant to Health Maintenance Insurance [facility] [employer] [facility] [employer] Care Teams Ampoule Examiner Relationship Specialty Start Date End Date Damien Fleming MD PCP - General Internal Medicine 05/28/21 Rohit Hill MD Referring Physician Ophthalmology 05/28/21
--- OUTSIDE RECORDS SUMMARY | 2024-11-24 12:19 | XMS_ITS | Data Portability ---
Author Organization [facility] Ernesto Key Address [address] [place] [address] Care Team Providers Care [employer] Platem[employer] Name Role Phone PHIL FLEMING Primary Care Provider Unavailabl e Assessment Encounter Date Assessment Date Assessment LastModified by Organization Details LastModified Time 03/09/2024 03/09/2024 x-ray neck and hip discussed orthopedic referral for the hip and we will get some physical therapy she will see me in a couple of months [email or web address] Not available 03/09/2024 15:18:07 06/15/2024 06/15/2024 finish her antibiotics for her sinusitis. Continue current therapy for other medical problems. Once she is over the sinus infection she will get her immunizations for pneumococcal believe COVID RSV and flu follow up with me in 3 months [email or web address] Not available 06/16/2024 17:33:57 09/14/2024 09/14/2024 We will continue current therapy no change in medications diagnosis have been discussed records reviewed consult notes reviewed blood work reviewed see me in 4 months [email or web address] Not available 09/14/2024 16:50:40 10/16/2024 10/16/2024 Orthopedics [email or web address] Not available 18:09:14 Plan of Treatment Reminders Order Date Submit Date Provider Last Modified By Organization Details Last Modified Time Details Appointments ANY 15 2024 09:30A M Phil Fleming MD Not available Not available Not available Lab None recorded. Referral orthopedi c surgeon referral 2024 025 JULIANA Crane MD, [address], [place], [address], 10/25/2024 17:44:22 orthopedi c surgeon referral 2023 024 [facility] Garo Dejesus, [address], [address], [place], [address], 09/14/2024 11:25:11 physical therapist referral 2023 024 [facility] [place], [facility], [place], [address], 09/14/2024 11:25:36 Procedures None recorded. Surgeries None recorded. Imaging None recorded. Medication Orders Prolia 60 mg/mL subcutane ous syringe 2024 025 [id number], [address], [place], [address], 09/14/2024 14:27:45 Prolia 60 mg/mL subcutane ous syringe 2023 024 [id number] [id number], [address], [place], [address], 04/09/2024 05:31:56 Patient TargetsNo targets recorded. Patient Instructions Encounter Date Encounter Id Patient Instructions Last Modified By Organization Details Last Modified Time 06/15/2024 [id number] A healthy lifestyle: care instructions [email or web address] Not available 06/15/2024 11:40:09 09/14/2024 [id number] A healthy lifestyle: care instructions [email or web address] Not available 09/14/2024 14:27:45 10/16/2024 [id number] A healthy lifestyle: care instructions [email or web address] Not available 10/16/2024 17:32:26 Reason for Referral Orthopedic Surgeon Referral for Pain of left hip joint Referring Physician: Phil Fleming, Internal Medicine, Encounter Date: 03/09/2024 Physical Therapist Referral for Pain of left hip joint Referring Physician: Phil Fleming, Internal Medicine, Encounter Date: 03/09/2024 Orthopedic Surgeon Referral for Pain of left shoulder region Referring Physician: Phil Fleming, Internal Medicine, Encounter Date: 10/16/2024 Results Created Date Observation Date Name Description Value Unit Range Abnormal Flag Note LastModifiedBy Organization Detail LastModifiedTime 03/30/20 24 03/30/2024 MRI, hip, w/o contr ast No observ ation record ed. [facility] [address], [place], [address], 04/04/2024 09:47:32 11/09/19 25 11/08/2024 MRI, [place], w/o contr ast No observ ation record ed. [facility] [address], [place], [address], 11/09/2024 12:14:51 Result Notes None recorded. Problems Name Problem SNOMED Code Status Onset Date Resolution Date Notes Provider Name and Address Organization Details Recorded Time Osteoporosis 96464484 Active 2023 Eric Reynaga [place] null, [place] [facility] 4 12:00:39 Abdominal pain 50463697 Active 2023 Eric Reyn[place], [place] [facility] 4 11:48:36 Anemia 218006940 Active 2023 Eric Reynaga [place], [place] [facility] 4 11:48:36 Hand pain 93783347 Active Harrison Bartlett MD Attn: Alfredo meza,[address] [facility], [place], [address], [place] [facility] 5 18:15:12 Depressive disorder 58134034 Active Harrison Bartlett MD Attn: Alfredo meza,[address] [facility], [place], [address], [place] [facility] 5 16:23:20 Gastroesophage al reflux disease 674625321 Active Harrison Bartlett MD Attn: Alfredo meza,[address] [facility], [place], [address], [place] [facility] 6 11:09:56 Urinary incontinence 016872090 Sinai Bartlett MD Attn: Alfredo meza,[address] [facility], [place], [address], [place] [facility] 5 11:22:54 Essential hypertension 66405741 Sinai Bartlett MD Attn: Alfredo meza,[address] [facility], [place], [address], [place] [facility] 6 12:37:07 Vitamin D deficiency 40845566 Sinai Bartlett MD Attn: Accountdiandra meza,[address] [facility], [place], [address], [place] [facility] 5 11:22:54 Osteopenia 306962788 Sinai Bartlett MD Attn: Reesediandra meza,[address] [facility], [place], [address], [place] [facility] 5 16:23:20 Impairment of balance 061763431 Sinai Bartlett MD Attn: Reesediandra meza,[address] [facility], [place], [address], [place] [facility] 5 16:31:11 Decreased hearing 015199314 Sinai Bartlett MD Attn: Alfredo derrick,[address] [facility], [place], [address], [place] [facility] 5 16:31:11 On examination - carotid bruit Sinai Bartlett MD Attn: Alfredo derrick,[address] [facility], [place], [address], [place] [facility] 5 18:15:12 Dysphagia 23744163 Sinai Bartlett MD Attn: Alfredo derrick,[address] [facility], [place], [address] [place] [address], [place] [facility] 6 11:09:56 Bronchitis 78212875 Sinai Bartlett MD Attn: Reesediandra meza,[address] [facility], [place], [address], [place] [facility] 6 11:09:56 Allergic rhinitis 90786744 Active Harrison Bartlett MD Attn: Alfredo meza,[address] [facility], [place], [address], [place] [facility] 6 11:09:56 Low back pain 923262154 Active Harrison Bartlett MD Attn: Accountdiandra meza,[address] [facility], [place], [address], [place] [facility] 6 12:37:07 Sciatica 14006938 Active Harrison Bartlett MD Attn: Accountdiandra meza,[address] [facility], [place], [address], [place] [facility] 6 12:37:07 Carotid atherosclerosi s 541533993 Active Harrison Bartlett MD Attn: Reesediandra meza,[address] [facility], [place], [address], [place] [facility] 6 12:37:07 Dysuria 87003010 Sinai Bartlett MD Attn: Reesediandra meza,[address] [facility], [place], [address], [place] [facility] 6 12:37:07 Knee pain Active Harrison Bartlett MD Attn: Reesediandra meza,[address] [facility], [place], [address] [facility] 6 11:43:57 Urinary tract infectious disease 55975397 Sinai Bartlett MD Attn: Alfredo derrick,[address] [facility], [place], [address], [place] [facility] 6 11:29:38 Abrasion of skin of elbow 985666750 Sinai Bartlett MD Attn: Alfredo meza,[address] [facility], [place], [address], [facility] - [facility] 6 11:29:38 Problem Notes None recorded. Procedures Surgical History Date Name Laterality Status Provider Name and Address Organization Details Recorded Time 05/23/19 Colonoscopy & polypectomy completed Karlie Perez MA [place] - [facility] 02/02/2024 10:44:26 11/26/19 16 Arthrocentesis Intermediate Joint/Bursa completed Harrison Bartlett MD Attn: Accounting,[address] [facility], [place], [address], [facility] - [facility] 11/26/2015 11:41:19 11/26/19 16 Joint Injection completed Harrison Bartlett MD Attn: Accounting,[address] [facility], [place], [address], [facility] - [facility] 11/26/2015 11:42:37 hernia repair completed Karlie Perez MA [place] - [facility] 02/02/2024 10:44:02 Hysterectomy completed Robert Orr MA [place] - [facility] 09/24/2014 15:36:49 Imaging Results None recorded. Procedure Notes None recorded. Medical Equipment None Reported. Allergies Allergen ID Allergen Name Allergen Category Reaction Reaction Severity Criticality Documentation Date Start Date Code Code System Note Provider Name and Address Organization Details Recorded Time 107339 lisinopri l medicatio n anaphylax is Not available Not available 07/18/2023 99207 RxNorm BRENDA Talbot, [facility] 4 11:22:53 488499 atorvasta tin medicatio n Not available Not available [facility] 09/14/20242023 93832 RxNorm BRENDA Weems, [facility] 5 11:12:40 Medications Name Sig Start Date Stop Date Status Note LastModified by Organization Details LastModified Time glycopyrr olate 1 mg tablet TAKE 1 TABLET BY MOUTH THREE TIMES DAILY TO BE TAKEN WITH MESTINON 07/18 completed Not Available Not Available Not Available fluoxetin e 40 mg capsule TAKE 1 CAPSULE BY MOUTH EVERY DAY active Not Available Not Available No t Available nystatin 100,000 unit/mL oral suspensio n 5 ML 4 TIMES DAILY DIRECTED FOR 10 DAYS 07/18 completed Not Available Not Available Not Available prednison e 10 mg tablet TAKE 1 TABLET BY MOUTH TWICE A DAY FOR 10 DAYS 06/15 completed Not Available Not Available Not Available albuterol sulfate 2.5 mg/3 mL (0.083 %) solution for nebulizat ion INHALE 3 ML BY NEBULIZA TION 3 TIMES A DAY active Not Available Not Available No t Available azithromy martha 250 mg tablet TAKE 2 TABLETS BY MOUTH TODAY, THEN TAKE 1 TABLET DAILY FOR 4 DAYS DIRECTED active Not Available Not Available No t Available ibuprofen 800 mg tablet TAKE ONE TABLET BY MOUTH THREE TIMES DAILY 07/18 completed Not Available Not Available Not Available tizanidin e 4 mg tablet TAKE 1 TABLET BY MOUTH AT BEDTIME NEEDED FOR MUSCLE SPASM / PAIN 06/15 completed Not Available Not Available Not Available hydrocodo ne 5 mg-acetam inophen 325 mg tablet TAKE 1 TABLET BY MOUTH EVERY 4 HOURS NEEDED FOR PAIN 06/15 completed Not Available Not Available Not Available lisinopri l 20 mg tablet TAKE ONE TABLET BY MOUTH ONCE DAILY 07/18 completed Not Available Not Available Not Available prednison e 20 mg tablet TAKE 2 TABLETS BY MOUTH EVERY DAY FOR 5 DAYS active Not Available Not Available No t Available prednison e 5 mg tablet TAKE 1 TABLET BY MOUTH EVERY DAY active Not Available Not Available No t Available ciproflox acin 250 mg tablet Take 1 tablet every 12 hours by oral route for 5 days. 08/15 completed Not Available Not Available Not Available trimethop rim 100 mg tablet TAKE 1 TABLET BY MOUTH EVERY DAY 2024 active Not Available Not Available Not Avai lable aspirin 81 mg tablet,de layed release Take 1 tablet every day by oral route. active Not Available Not Available No t Available tramadol 50 mg tablet 07/18 completed Not Available Not Available Not Available acetamino phen 500 mg tablet Take 2 tablets every 8 hours by oral route as needed. 09/14 completed Not Available Not Available Not Available Depo-Medr ol 80 mg/mL suspensio n for injection 07/18 completed Administ ered by Dr. Bartlett Not Available Not Available Not Available terbinafi ne HCl 250 mg tablet TAKE 1 TABLET BY MOUTH ONCE DAILY 07/18 completed Not Available Not Available Not Available tolterodi ne 2 mg tablet active Not Available Not Available Not Available cyanocoba steve (vit B-12) 1,000 mcg/mL injection solution INJECT 1 ML UNDER THE SKIN ONCE MONTHLY 2024 active Not Available Not Available Not Avai lable pyridosti gmine bromide 60 mg tablet TAKE 1 TABLET BY MOUTH THREE TIMES DAILY 07/18 completed Not Available Not Available Not Available lisinopri l 10 mg tablet Take 1 tablet every day by oral route for 30 days. active Not Available Not Available No t Available BD Luer-Nabil Syringe 3 mL 25 gauge x 1 USE TO INJECT B12 MONTHLY INJECTIO NS active Not Available Not Available No t Available omeprazol e 20 mg capsule,d elayed release TAKE 1 CAPSULE BY MOUTH EVERY DAY active Not Available Not Available No t Available gabapenti n 100 mg capsule Take 1 capsule 3 times a day by oral route. 07/18 completed Not Available Not Available Not Available ergocalci ferol (vitamin D2) 1,250 mcg (50,000 unit) capsule Take 1 capsule every week by oral route. active Not Available Not Available No t Available cefuroxim e axetil 500 mg tablet TAKE 1 TABLET BY MOUTH EVERY 12 HOURS FOR 10 DAYS 09/14 completed Not Available Not Available Not Available methylpre dnisolone 4 mg tablets in a dose pack 07/18 completed Not Available Not Available Not Available albuterol sulfate HFA 90 mcg/actua tion aerosol inhaler TAKE 2 PUFFS BY MOUTH EVERY 4 HOURS NEEDED FOR WHEEZE active Not Available Not Available No t Available oxybutyni n chloride 5 mg tablet Take one tablet by mouth Twice daily 07/18 completed Not Available Not Available Not Available ondansetr on 4 mg disintegr ating tablet DISSOLVE 1 TABLET ON TONGUE EVERY 8 HOURS NEEDED FOR NAUSEA AND VOMITING 06/15 completed Not Available Not Available Not Available cefdinir 300 mg capsule TAKE 1 CAPSULE BY MOUTH TWICE A DAY FOR 7 DAYS 07/18 completed Not Available Not Available Not Available fluoxetin e 20 mg capsule TAKE ONE CAPSULE BY MOUTH ONCE DAILY 07/18 completed Not Available Not Available Not Available fluticaso ne propionat e 50 mcg/actua tion nasal spray,shelby pension SPRAY 2 SPRAYS INTO EACH NOSTRIL EVERY DAY active Not Available Not Available No t Available naproxen 500 mg tablet TAKE 1 TABLET TWICE A DAY WITH MEALS FOR PAIN 07/18 completed Not Available Not Available Not Available rosuvasta tin 10 mg tablet TAKE 1 TABLET BY MOUTH ONCE DAILY 07/18 completed Not Available Not Available Not Available rosuvasta tin 20 mg tablet TAKE 1 TABLET BY MOUTH EVERY DAY active Not Available Not Available No t Available nitrofura ntoin monohydra te/macroc rystals 100 mg capsule 07/18 completed Not Available Not Available Not Available budesonid e-formote rol HFA 160 mcg-4.5 mcg/actua tion aerosol inhaler INHALE 2 PUFFS BY MOUTH 2 TIMES A DAY RINSE MOUTH WITH WATER AFTER USE. DO NOT SWALLOW. active Not Available Not Available No t Available Prolia 60 mg/mL subcutane ous syringe INJECT 1 SYRINGE UNDER THE SKIN ONCE EVERY 6 MONTHS 2024 active pt tolerate d injectio n well Not Available Not Available Not Available Adult Robitussi n Peak Cold DM Max 10 mg-200 mg/5 mL oral liquid Take 10 mL every 6 hours by oral route as needed. 2015 active Not Available Not Available Not Avai lable Incruse Ellipta 62.5 mcg/actua tion powder for inhalatio n INHALE 1 PUFF BY MOUTH DAILY active Not Available Not Available No t Available Vitals Date Recorded Body height Body mass index (BMI) Body weight Heart rate Oxygen saturation Oxygen saturation in Arterial blood by Pulse oximetry Systolic And Diastolic Provider Name and Address Organization Details Last Updated DateTime 5 157.48 cm 26.9 kg/m2 93835.4 4 g 100 /min 99 % 99 % 120/72 mm[Hg] [facility] 5 11:24:24 Date Recorded Body height Body mass index (BMI) Body weight Heart rate Oxygen saturation Oxygen saturation in Arterial blood by Pulse oximetry Systolic And Diastolic Provider Name and Address Organization Details Last Updated DateTime 5 157.48 cm 32.8 kg/m2 43298.4 7 g 99 /min 96 % 96 % 124/74 mm[Hg] [facility] 5 11:17:34 Date Recorded Body height Body mass index (BMI) Body weight Heart rate Oxygen saturation Oxygen saturation in Arterial blood by Pulse oximetry Systolic And Diastolic Provider Name and Address Organization Details Last Updated DateTime 5 157.48 cm 32.9 kg/m2 42370.5 5 g 106 /min 98 % 98 % 150/68 mm[Hg] Anita Lara MA [facility] 5 16:50:48 Date Recorded Body height Body mass index (BMI) Body weight Heart rate Oxygen saturation Oxygen saturation in Arterial blood by Pulse oximetry Systolic And Diastolic Provider Name and Address Organization Details Last Updated DateTime 4 157.48 cm 31.1 kg/m2 28909.7 g 90 /min 94 % 94 % 128/62 mm[Hg] Bibiana Heath MA [facility] 4 11:32:47 Social History Question Answer Notes LastModified by Organizat ion Details LastModified Time Tobacco Smoking Status Former Smoker Robert Orr MA [facility] 09/24/2014 15:36:49 Are You Blind Or Do You Have Difficulty Seeing? No Information n ot available 02/02/2024 What Is Your Level Of Caffeine Consumption? Heavy Information not available 09/24/2014 In The 14 Days Before Symptom Onset, Have You Had Close Contact With A Laboratory-confirm ed COVID-19 While That Case Was Ill? No Information n ot available 02/02/2024 In The 14 Days Before Symptom Onset, Have You Had Close Contact With A Person Who Is Under Investigation For COVID-19 While That Person Was Ill? No Information not available 02/02/2024 Have You Been To An Area Known To Be High Risk For COVID-19? No Information not available 02/02/2024 Are You Deaf Or Do You Have Serious Difficulty Hearing? No Information not available 02/02/2024 What Type Of Diet Are You Following? REGULAR Information n ot available 02/02/2024 Are There Any Guns Present In Your Home? No Information not available 02/02/2024 What Was The Date Of Your Most Recent Tobacco Screening? 09/14/2024 Information not available 09/14/2024 Do You Use Your Seat Belt Or Car Seat Routinely? Yes Information not available 02/02/2024 Do You Have Smoke And Carbon Monoxide Detectors In Your Home? Yes Information not available 02/02/2024 Do You Use Sunscreen Routinely? Yes Information not available 02/02/2024 Has Tobacco Cessation Counseling Been Provided? Yes Information not available 06/15/2024 On What Date Was Tobacco Cessation Counseling Provided? 09/14/2024 Information not available 09/14/2024 Sex: Female Functional Status Question Answer Note LastModified by Organizat ion Details LastModified Time Do you use any illicit or recreational drugs? No Information not available 06/15/2024 Do you or have you ever used any other forms of tobacco or nicotine? No Information not available 09/14/2024 What is your level of alcohol consumption? Occasional Information not available 09/24/2014 Are you able to care for yourself? Yes Information n ot available 02/02/2024 Mental Status None recorded. Family History Nothing Reported. Medical History Condition Response Liver Disease Y High Blood Pressure Y Stroke Y Osteoporosis Y High Cholesterol Y Gynecological History Statement/Question Response Current Control Method Hysterectom y Obstetrics History GPAL:G 0 P 0 0 0 0 Immunizations Vaccine Type Date Status Note Provider Nam e and Address Organization Details Recorded Time Influenza, high-dose, quadrivalent, PF 1 completed Ritu Salazar R[place], [place] [facility] 08/16/2023 11:17:43 Influenza, high-dose, quadrivalent, PF 2 completed Ritu Salazar [place] [facility] 08/16/2023 11:17:43 Influenza, high-dose, quadrivalent, PF 3 completed Ritu Salazar [place] [facility] 08/16/2023 11:17:43 COVID-19, mRNA, LNP-S, PF, 100 mcg/0.5mL dose or 50 mcg/0.25mL dose 1 completed Ritu Salazar R[place] [facility] 08/16/2023 11:17:43 COVID-19, mRNA, LNP-S, PF, 100 mcg/0.5mL dose or 50 mcg/0.25mL dose 1 completed Ritu Salazar R[place] [facility] 08/16/2023 11:17:43 COVID-19, mRNA, LNP-S, PF, 100 mcg/0.5mL dose or 50 mcg/0.25mL dose 1 completed Ritu Salazar [place] [facility] 08/16/2023 11:17:43 pneumococcal polysaccharide PPV23 9 completed Ritu Sal[place] [facility] 08/16/2023 11:17:43 Tdap 9 completed Ritu Salazar, [place] [facility] 08/16/2023 11:17:44 Tdap 9 completed Ritu Salazar, [place] [facility] 08/16/2023 11:17:44 Pneumococcal conjugate PCV 13 7 completed Ritu Sal[place] [facility] 08/16/2023 11:17:44 Influenza, high-dose, trivalent, PF 9 completed Ritu Sal[place] [facility] 08/16/2023 11:17:44 Influenza, high-dose, trivalent, PF 7 completed Ritu Sal[place] [facility] 08/16/2023 11:17:44 Hep A, adult 1 completed Ritu Sal[place] [facility] 08/16/2023 11:17:44 Hep A, adult 0 completed Ritu Sal[place] [facility] 08/16/2023 11:17:44 Influenza, high-dose, trivalent, PF 5 completed Edith Jeronimo [place] [facility] 06/29/2024 15:28:50 Pneumococcal conjugate PCV20, polysaccharide FYT194 conjugate, adjuvant, PF 5 completed Edith Jeronimo [place] [facility] 06/29/2024 15:28:50 Past Encounters Encounter ID Performer Location Encounter Start Date Encounter Closed Date Diagnosis/Indication Diagnosis SNOMED-CT Code Diagnosis ICD10 Code Diagnosis Note [id number] Harrison Bartlett MD [facility] (Adult Med) [address] [place] [id number] 09/24/2014 15:22:25 09/24/2014 16:32:02 History of cerebrovascular disease 176780903 Hand pain 51607209 Depressive disorder 64258120 Gastroesop hageal reflux disease 105019231 History of polyp of colon 255491988 Urinary incontinence 062737066 Essential hypertension 09399860 Vitamin D deficiency 44110214 Osteopenia 900618957 [id number] MD [facility] (Adult Med) [address] [place] [id number] 11/12/2014 15:27:12 11/13/2014 09:09:44 Hand pain 11820577 Vitamin D deficiency 45404837 History of polyp of colon 022042179 History of cerebrovascular disease 747670856 Impairment of balance 533117133 Decreased hearing 805262324 [id number] MD Madelyn Mcgowan (Adult Med) [address] [place] [phone] 01/13/2015 10:00:23 01/13/2015 11:23:51 Hand pain 71044582 Vitamin D deficiency 42817422 Urinary incontinence 219718034 [id number] [facility] [address] [place] [id number] 04/21/2015 16:01:40 04/21/2015 18:18:29 On examination - carotid bruit 805776662 R09.89 Essential hypertension 66579922 I10 Hand pain 75115013 M79.6 41 Gastroesop hageal reflux disease 660368567 K21.9 [id number] MD Madelyn Mcgowan (Adult Med) [address] [place] [id number] 08/05/2015 16:14:39 08/05/2015 18:05:38 Gastroesophageal reflux disease 265228552 K21.9 [id number] MD Madelyn Mcgowan (Adult Med) [address] [place] [id number] 09/09/2015 09:52:27 09/09/2015 11:42:05 Gastroesophageal reflux disease 996545105 K21.9 Dysphagia 40328143 R13.1 0 Bronchitis 11221906 J40 Allergic rhinitis 957738 04 J30.9 Low back pain 943068438 M54.5 Sciatica 99461165 M54.31 [id number] MD Madelyn Mcgowan (Adult Med) [address] [place] [id number] 10/15/2015 11:36:55 10/15/2015 12:39:10 Essential hypertension 51628187 I10 Low back pain 342365239 M54.5 Sciatica 76101709 M54.31 Carotid atherosclerosis 050327005 I70.8 Dysuria 52244558 R30.0 [id number] [facility] [address] [place] [id number] 10/29/2015 12:21:33 10/29/2015 13:48:53 Knee pain 31239880 M25.561 [id number] Harrison Bartlett MD [facility] (Adult Med) [address] [place] [id number] 11/26/2015 09:54:24 11/26/2015 11:35:44 Knee pain 33784925 M25.561 [id number] Harrison Bartlett MD [facility] (Adult Med) [address] [place] [id number] 0 01/27/2016 10:41:42 01/27/2016 11:32:28 Urinary tract infectious disease 51646748 N39.0 Abrasion o f skin of elbow 390664826 S50.312S [id number] MD Madelyn [facility]tz (Adult Med) [address] [place] [id number] 07/18/2023 10:54:41 07/18/2023 12:14:37 Dyspnea 274691099 R06.00 Anemia 113772056 D64.9 Constipation 43394760 K5 9.00 Osteoporosis 18599473 M8 1.0 Dysuria 22073267 R30.0 [id number] MD Madelyn [facility] (Adult Med) [address] [place] [id number] 08/05/2023 11:28:59 08/05/2023 12:00:09 Osteoporosis 92621128 M81.0 [id number] MD Madelyn Mtz (Adult Med) [address] [place] [id number] 08/16/2023 11:03:02 08/16/2023 12:04:37 Abdominal pain 49729143 R10.9 Anemia 952143040 D64.9 [id number] Phil Fleming MD [facility]ishnu [facility]aires [address] [place] [address] 02/02/2024 10:15:44 02/02/2024 11:37:12 Obesity 707874545 E66.8 Neck pain 57969679 M54.2 Pain of le ft hip joint 8229252438 46850 M25.552 Essential hypertension 84238554 I10 Gastroesop hageal reflux disease 723916289 K21.9 Anemia 345354958 D64.9 Anxiety 28901863 F41.9 [id number] MD Madelyn Mtz (Adult Med) [address] [place] [phone] 03/09/2024 11:16:35 03/09/2024 12:33:20 Osteoporosis 81085070 M81.0 Disorder o f vitamin B12 762344948 E53.8 Pain of le ft hip joint [id number] 78195 M25.524 [id number] MD Madelyn Mtz (Adult Med) [address] [place] [phone] 06/15/2024 11:01:01 06/15/2024 12:18:35 Body mass index 25-29 - overweight 186829601 Z68.26 Overweight 146390834 E66 .3 Anemia 589349635 D64.9 Essential hypertension 85148209 I10 Gastroesop hageal reflux disease 825762008 K21.9 Osteoporosis 04596635 M8 1.0 Acute sinusitis 05658444 J01.90 [id number] MD Madelyn Mtz (Adult Med) [address] [place] [phone] 06/29/2024 14:48:18 06/29/2024 16:05:08 Administration of influenza vaccine 21196047 Z23 Administra tion of pneumococcal vaccine 77234569 Z23 [id number] MD Madelyn Mtz (Adult Med) [address] [place] [phone] 09/14/2024 11:05:54 09/14/2024 12:09:12 Body mass index 30+ - obesity 012122672 Z68.32 Obese class I [id number] 87658 E66.811 Gastroesop hageal reflux disease 761099988 K21.9 Anemia 160771264 D64.9 Essential hypertension 79030943 I10 Osteoporosis 79758691 M8 1.0 Vitamin D deficiency 347 04878 M81.0 [id number] MD Madelyn Mtz (Adult Med) [address] [place] [phone] 10/16/2024 15:41:06 10/16/2024 17:27:26 Obese class I [id number] 69900 E66.811 Body mass index 30+ - obesity 690063656 Z68.32 Pain of le ft shoulder region 9868792810 M25.512 Health Concerns Section Related Observation LastModified by Organization Detai ls LastModified Time None Recorded Concern Status LastModified by Organization Details LastModified Time None Recorded Advance Directives Directive None Recorded Payers Insurance Date Sequence Insurance Name Policy Number Policy Wood Covered Member ID Wood Member ID Guarantor Name 10/29/2024 1 [employer] (MEDICARE REPLACEMENT/ ADVANTAGE - PPO) [id number] Lindsey Lance [id number] Lindsey Lance 09/14/2024 1 [facility] - OPEN ACCESS (POS) [id number] Lindsey Lance [id number] Lindsey Lance 09/14/2024 1 [employer] - PRIME (MEDICARE REPLACEMENT/ ADVANTAGE - HMO) [id number] Lindsey Lance [id number] Lindsey Lance 09/14/2024 2 [employer] Lindsey Lance [id number] Lindsey Lance Notes Date Note Type Note Provider Name and Address Organization Details Recorded Time 03/09/2024 text/html hip still bother s her. She did see the liver specialist and doing some more specialized testing. Needs a Prolia shot today Phil Fleming MD Attn: Accounting[address] [place], [address], [facility] 03/09/2024 15:18:25 06/15/2024 text/html anemia we are ke eping an eye on it she is going to take some iron [id number] hypertension has not had headache or dizziness GERD there has been no nausea or vomiting. Anxiety has been stable myasthenia gravis she has been doing okay with regards to that as well osteoporosis no new bone pain sinuses flared up she is currently on antibiotics feeling a little Phil Fleming MD Attn: Accounting[address] [facility], [place], [address], [facility] 06/16/2024 17:34:15 09/14/2024 text/html GERD has been st able no nausea or vomiting anemia she has been doing fine symptomatically says she feels better no chest pain shortness breath palpitations no glossitis symptoms and she is not craving any cold fluids osteoporosis Prolia today low vitamin-D level taking her supplementation myasthenia gravis stable very slow prednisone taper lung issues stable Phil Fleming MD Attn: Accounting[address] [facility], [place], [address], [facility] 09/14/2024 16:51:02 10/16/2024 text/html Left shoulder pa in for awhile hurts to raise above her head no numbness or tingling no trauma no neck pain Phil Fleming MD Attn: Accounting[address] [place], [address], [facility] 10/28/2024 18:09:30 OBGyn Episode No OBEpisode recorded.
--- NOTE | 2024-11-24 12:22 | ED.ABDPAIN ---
HPI - Abdominal Pain General Chief Complaint: Abdominal Pain Stated Complaint: left flank pain Time Seen by Provider: 11/24/24 12:21 Source: patient Mode of arrival: ambulatory Limitations: no limitations History of Present Illness HPI narrative: 74 years old white female came to the ED by private car complaining left flank, left lower ribs pain started few days ago, patient denies any trauma, dull aching, worse with any movement, better laying still. Patient denies any fever, chills, nausea, vomiting, shortness of breath or chest pain or radiation of pain. History of hyperlipidemia COPD, TIA migraine headache, currently on baby aspirin once a day patient vapes, denied drinking or using drugs, denies any recent trauma MD elicited complaint: abdominal pain Related Data Home Medications ?Medication ?Instructions ?Recorded ?Confirmed ?Last Taken ?Type albuterol sulfate 90 mcg/actuation 2 puff inhalation Q4H PRN SOB 08/15/23 11/15/24 12/02/23 History aerosol inhaler aspirin 81 mg tablet 81 mg PO DAILY 08/15/23 11/15/24 11/27/23 History budesonide-formoterol HFA 160 2 puff inhalation Q12H SOB 08/15/23 11/15/24 09/22/23 21:00 History mcg-4.5 mcg/actuation aerosol inhaler (Symbicort) fluoxetine 20 mg capsule 20 mg PO DAILY 08/15/23 11/15/24 09/21/23 21:00 History omeprazole 20 mg tablet,delayed 20 mg PO DAILY 08/15/23 11/15/24 09/21/23 21:00 History release prednisone 5 mg tablet 5 mg PO DAILY 08/15/23 11/15/24 09/21/23 08:00 History rosuvastatin 20 mg tablet 20 mg PO DAILY 08/15/23 11/15/24 09/21/23 17:00 History trimethoprim 100 mg tablet 100 mg PO DAILY 08/15/23 11/15/24 09/21/23 21:00 History umeclidinium 62.5 mcg/actuation 1 inh inhalation DAILY 08/15/23 11/15/24 09/22/23 08:00 History blister powder for inhalation (Incruse Ellipta) ferrous sulfate 325 mg (65 mg 325 mg PO DAILY 09/27/23 11/15/24 Unknown History iron) tablet acetaminophen 650 mg 650 mg PO Q12H PRN Pain 11/29/23 11/15/24 Unknown History tablet,extended release (Tylenol Arthritis Pain) cholecalciferol (vitamin D3) 25 25 mcg PO DAILY 11/29/23 11/15/24 Unknown History mcg (1,000 unit) capsule cyanocobalamin (vitamin B-12) See Rx Instructions .Route .COMPLEX 11/29/23 11/15/24 Unknown History 1,000 mcg/mL injection solution fluticasone propionate 50 See Rx Instructions .Route 11/29/23 11/15/24 Unknown History mcg/actuation nasal .COMPLEX PRN Congestion spray,suspension Allergies Allergy/AdvReac Type Severity Reaction Status Date / Time atorvastatin (From Lipitor) Allergy Severe Anaphylaxis Verified 11/24/24 12:51 lisinopril Allergy Intermediate lip Verified 11/24/24 12:51 swelling Review of Systems Review of Systems: All systems reviewed & are unremarkable except as noted in HPI and below PMFSH Past Medical History Medical History Anemia History of TIA (transient ischemic attack) Hyperlipidemia COPD (chronic obstructive pulmonary disease) Surgical History Surgical History History of ventral hernia repair Open 2 cm ventral hernia repair with 6.[address] hernia patch 12/02/23 History of cholecystectomy History of hysterectomy History of tonsillectomy Social History Social History Smoking packs per day: 1 Smoking cigarettes per day: 20.0 Years smoked: 45 Smoking pack-years: 45.00 Smoking status: Former smoker Tobacco type: cigarettes Alcohol intake: current Alcohol use details: Occasionally Substance use: never Substance use type: does not use Last use: 11/20/2014 Do You Feel Safe in your Home?: Yes Lack of Transportation: YES Lack of Food: Never True Current Housing: I Have Housing Concerned About Future Housing: No Difficulty Paying Gas/Electric Bills: No Difficulty Paying for Meds: No Currently Unemployed: No Education: High School Diploma/GED Difficulty w/ Childcare or Family Care: No Living arrangements: with family Additional living arrangements comments: LIVE WITH BROTHER Spiritual care concerns: No Exam Narrative: General appearance: Well-developed, well-nourished Skin: Normal color Head: Normocephalic, nontraumatic Eyes: Clear conjunctiva ENT: Oropharynx normal, ears normal, nose normal Neck: Supple, nontender Chest and respiratory: Airway patent, no respiratory distress, no accessory muscle use, tenderness left lower ribs laterally, no bruises, no swelling, no rash Heart: Regular rate/rhythm Abdomen: Soft, nontender, no organomegaly, quiet bowel sounds left upper quadrant tenderness, no bruises, no swelling no rash Vascular: Normal peripheral pulses, normal capillary refill. 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, no gross motor deficit Course Vital Signs Vital signs: Vital Signs Pulse Rate 92 11/24/24 12:36 Respiratory Rate 17 11/24/24 12:36 Blood Pressure 151/91 H 11/24/24 12:36 Pulse Oximetry 98 11/24/24 12:36 Temperature 36.6 C 11/24/24 13:18 Pulse Rate 103 H 11/24/24 15:58 Respiratory Rate 16 11/24/24 15:58 Blood Pressure 137/69 11/24/24 15:58 Pulse Oximetry 96 11/24/24 15:58 MDM - Abdominal Pain MDM Narrative Medical decision making narrative: Patient presents with pain left lower ribs left upper abdomen started few days ago, no trauma Vital signs are stable Physical examination consistent with tenderness left lower ribs laterally left upper quadrant, otherwise insignificant Differential diagnosis include muscular strain/sprain, pneumonia, urinary tract infection, colitis, diverticulitis, constipation, pulmonary embolism, pleural effusion. Blood workup today includes CBC, CMP, troponin, D-dimer, coags showed WBC 10.1, D-DIMER 0.83, CREATININE 1.04, OTHERWISE WITHIN NORMAL LIMIT URINALYSIS POSITIVE FOR NITRATE Chest x-ray showed NO ACUTE ABNORMALITIES EKG showed NORMAL SINUS RHYTHM FIRST-DEGREE HEART BLOCK CT ABDOMEN AND PELVIS WITH IV CONTRAST SHOWED NO ACUTE ABNORMALITIES CTA RULE OUT PE SHOWED NO PULMONARY EMBOLISM DIAGNOSIS URINARY TRACT INFECTION DISCHARGED ON CIPRO DISCHARGE Differential Diagnosis Differential diagnosis: Likely other ( ABOVE) Medical Records Attestation: I reviewed the patient's medical records. Lab Data Attestation: I reviewed the patient's lab results. 11/24/24 12:50 11/24/24 12:50 Labs: Lab Results 11/24/24 11/24/24 11/24/24 Range/Units 12:50 12:50 13:12 WBC 10.1 H (4.5-10.0) K/mm3 RBC 4.76 (4.2-5.4) M/mm3 Hgb 14.2 (12.0-15.0) g/dL Hct 43.5 (37.0-47.0) % MCV 91.4 (80-100) fl MCH 29.8 (26-34) pg MCHC 32.6 (32-36) g/dl RDW 12.4 (11.5-14.5) % Plt Count 387 H (150-375) k/mm3 MPV 8.8 (7.4-10.4) fl Immature Gran % (Auto) 1.8 H (0-0.5) % Neut % (Auto) 64.3 (45.5-73.1) % Lymph % (Auto) 20.0 (18.3-44.2) % [place] % (Auto) 12.1 H (2.6-8.5) % Eos % (Auto) 1.2 (0-4.4) % Baso % (Auto) 0.6 (0.2-1.2) % Lymph # (Auto) 2.01 (0.9-3.2) K/mm3 [place] # (Auto) 1.2 H (0.1-0.6) K/mm3 Eos # (Auto) 0.1 (0-0.3) K/mm3 Baso # (Auto) 0.1 (0.0-0.1) K/mm3 Abs Immat Gran (auto) 0.18 H (0.00-0.031) K/mm3 Absolute Neuts (auto) 6.5 (1.3-6.7) K/mm3 Absolute Nucleated RBC 0.000 (0.0-0.012) K/mm3 Nucleated RBC % 0.0 (0.0-0.2) % PT 13.0 (11.1-14.7) Seconds INR 1.0 APTT 40.1 H (22.3-36.8) Seconds D-Dimer 0.83 H (<0.48) ug/mL Sodium 137 (137-145) mmol/L Potassium 4.2 (3.4-5.0) mmol/L Chloride 103 (98-107) mmol/L Carbon Dioxide 21 L (22-30) mmol/L Anion Gap 13 H (4-12) mmol/L BUN 20 H (7-17) mg/dL Creatinine 1.04 H (0.7-1.0) mg/dL Estim Creat Clear Calc 44 ml/min Estimated GFR 52 L (59 - ) Glucose 117 H (65-110) mg/dL Calcium 9.8 (8.4-10.2) mg/dL Total Bilirubin 0.5 (0.2-1.3) mg/dL AST 31 (14-36) U/L ALT 27 (6-35) U/L Alkaline Phosphatase 63 (38-126) U/L Troponin I < 0.012 (0.000-0.034) ng/mL Total Protein 7.9 (6.3-8.2) g/dL Albumin 4.5 (3.5-5.1) g/dL Lipase 27 27 (23-300) U/L Urine Color Yellow (Yellow) Urine Appearance Clear (Clear) Urine pH 5.5 (5.0-9.0) Ur Specific [place] 1.009 (1.001-1.035) Urine Protein Negative (Negative) mg/dL Urine Glucose (UA) Negative (Negative) mg/dL Urine Ketones Negative (Negative) mg/dL Ur Blood (Man) Negative (Negative) Urine Nitrate Positive H (Negative) Urine Bilirubin Negative (Negative) Urine Urobilinogen 0.2 (<2.0) mg/dL Leukocyte Esterase Rfl Negative (Negative) NAVIN/UL Urine RBC 0-2 (0-2) /hpf Urine WBC 0-5 (0-3) /hpf Ur Squamous Epith Cells None seen (Few) /hpf Urine Bacteria 4+ H /hpf Urine Casts 0-2 Imaging Data Radiologist's impression: ITS Impressions Chest X-Ray 11/24/24 13:55 IMPRESSION: Mild pulmonary vascular congestion with platelike atelectasis in the left mid to lower lung field. Redemonstration of a large hiatal hernia. Chest/Abdomen/Pelvis CTA 11/24/24 15:00 IMPRESSION: No CT evidence of acute pulmonary embolus. 7 mm and 4 mm eccentric filling defects in the SMA, may represent nonocclusive calcified and noncalcified atherosclerotic plaque versus calcified plaque with small adjacent nonocclusive thrombi. There is adequate SMA enhancement more distally, and no change in the bowel wall enhancement pattern. Otherwise, no acute process detected in the chest, abdomen, or pelvis.. ECG Data EKG #1: Attestation: I personally reviewed and interpreted this ECG as follows: ECG completion date: 11/24/24 Interpretation: NORMAL SINUS RHYTHM AT 89 BEATS PER MIN Critical Care Time Critical Care Time Critical Care Time: Yes Total Critical Care Time: 30 Discharge Plan Discharge Clinical Impression: Urinary tract infection, Muscle pain Patient Disposition: Home Condition: Stable Instructions: Antibiotic Form, Urinary Tract Infection in Women (DC), Musculoskeletal Pain (ED) Patient Language: [place] Prescriptions: New ciprofloxacin HCl [Cipro] 500 mg tablet 500 mg PO Q12H Qty: 14 0RF cyclobenzaprine 7.5 mg tablet 7.5 mg PO TID Qty: 20 0RF No Action diclofenac sodium 75 mg tablet,delayed release (DR/EC) 75 mg PO BID Qty: 60 0RF fluticasone propionate 50 mcg/actuation spray,suspension See Rx Instructions .ROUTE .COMPLEX PRN (Reason: Congestion) Rx Instructions: Take 2 squirts to each nostril when needed takes in AM cyanocobalamin (vitamin B-12) 1,000 mcg/mL solution See Rx Instructions .ROUTE .COMPLEX Rx Instructions: Takes Monthly on the on the Month acetaminophen [Tylenol Arthritis Pain] 650 mg Tablet Extended Release 650 mg PO Q12H PRN (Reason: Pain) cholecalciferol (vitamin D3) 25 mcg (1,000 unit) Capsule 25 mcg PO DAILY prednisone 5 mg Tablet 5 mg PO DAILY Rx Instructions: Morning trimethoprim 100 mg tablet 100 mg PO DAILY Rx Instructions: Evening aspirin 81 mg Tablet 81 mg PO DAILY albuterol sulfate 90 mcg/actuation HFA aerosol inhaler 2 puff INHALATION Q4H PRN (Reason: SOB) fluoxetine 20 mg Capsule 20 mg PO DAILY Rx Instructions: Evening rosuvastatin 20 mg Tablet 20 mg PO DAILY Rx Instructions: Evening budesonide-formoterol [Symbicort] 160-4.5 mcg/actuation Hfa Aerosol Inhaler 2 puff INHALATION Q12H omeprazole 20 mg Tablet,Delayed Release (Dr/Ec) 20 mg PO DAILY Rx Instructions: Evening Incruse Ellipta 62.5 mcg/actuation blister with device 1 inh INHALATION DAILY Rx Instructions: Morning ferrous sulfate 325 mg (65 mg iron) Tablet 325 mg PO DAILY Rx Instructions: Evening Follow-up/Referrals: Lonnie,MD Damien [Primary Care Provider] -
[2024-11-24 12:36] VITALS: BP 151/91; PULSE 92; RESP 17; O2SAT 98
--- NOTE | 2024-11-24 12:40 | ECG_ITS ---
Test Date: 2024-11-24 12:49:07 Measurements Intervals [place] Rate: 89 P: 74 MS: 213 QRS: 67 QRSD: 74 T: 61 QT: 351 QTc: 429 Interpretive Statements SINUS RHYTHM WITH FIRST DEGREE AV BLOCK No previous ECG available for comparison Electronically Signed On 11-24-2024 14:10:52 CDT by Billy Pagan M.D.
[2024-11-24 12:58] LABS: Hematocrit 43.5 % (37.0-47.0); Hemoglobin 14.2 g/dL (12.0-15.0); Immature Granulocyte Percent A 1.8 % (0-0.5); Lymphocytes Absolute Auto 2.01 K/mm3 (0.9-3.2); Mean Corpuscular HGB Conc 32.6 g/dl (32-36); Mean Corpuscular Hemoglobin 29.8 pg (26-34); Mean Corpuscular Volume 91.4 fl (80-100); Nucleated Red Blood Cells Absolute Auto 0.000 K/mm3 (0.0-0.012); Nucleated Red Blood Cells Perc 0.0 % (0.0-0.2); Platelet Count Result 387 k/mm3 (150-375); Red Blood Count 4.76 M/mm3 (4.2-5.4); White Blood Count 10.1 K/mm3 (4.5-10.0)
[2024-11-24 13:08] LABS: Alanine Aminotransferase 27 U/L (6-35); Albumin Level 4.5 g/dL (3.5-5.1); Alkaline Phosphatase 63 U/L (38-126); Anion Gap 13 mmol/L (4-12); Aspartate Amino Transferase 31 U/L (14-36); Bilirubin,Total 0.5 mg/dL (0.2-1.3); Blood Urea Nitrogen 20 mg/dL (7-17); Calcium 9.8 mg/dL (8.4-10.2); Carbon Dioxide 21 mmol/L (22-30); Chloride 103 mmol/L (98-107); Estimated CRCL calculation 44 ml/min; Estimated Glomerular Filt Rate 52; Glucose 117 mg/dL (65-110); Lipase 27 U/L (23-300); Potassium 4.2 mmol/L (3.4-5.0); Sodium 137 mmol/L (137-145); Total Protein 7.9 g/dL (6.3-8.2)
[2024-11-24] MEDS: SODIUM CHLORIDE 0.9% IV 1,000 ML 999 ML IV CONT (13:10)
[2024-11-24 13:18] VITALS: TEMP 36.6
[2024-11-24 13:21] LABS: Lipase 27 U/L (23-300)
[2024-11-24 13:34] LABS: Troponin I < 0.012 ng/mL (0.000-0.034)
[2024-11-24 13:36] LABS: Add Urine Microscopic? YES; Appearance Urine Clear (Clear); Glucose Urine UA Negative (Negative); Leukocyte Esterase Ur Negative LEU/UL (Negative); Nitrate Urine Positive (Negative); Non Pathogenic Casts 0-2; Specific Grav Ur 1.009 (1.001-1.035)
[2024-11-24 13:44] LABS: INR 1.0; Partial Thromboplastin Time 40.1 Seconds (22.3-36.8); Prothrombin Time 13.0 Seconds (11.1-14.7)
--- NOTE | 2024-11-24 14:42 | PC.NURSE ---
Pt. to CT.
[2024-11-24 15:58] VITALS: BP 137/69; PULSE 103; RESP 16; O2SAT 96
--- NOTE | 2024-11-24 16:05 | PC.NURSE ---
Pt. requesting ice chips. Per Dr. Richey ok, pt. brought ice chips by this RN. Pt. also requesting updating by . Dr. richey notified.
[2024-11-24 16:42] VITALS: BP 129/107; PULSE 68; RESP 17; O2SAT 100
== END 2024-11-24 16:43 | disposition home or self-care (01) ==
PROVIDERS: Emergency Provider Emergency Medicine; PCP Internal Medicine
DX: N39.0 Urinary tract infection, site not specified (principal); R07.89 Other chest pain; R10.9 Unspecified abdominal pain; E78.5 Hyperlipidemia, unspecified; J44.9 Chronic obstructive pulmonary disease, unspecified; F17.290 Nicotine dependence, other tobacco product, uncomplicated; Z86.73 Personal history of transient ischemic attack (TIA), and cerebral infarction without residual deficits; Z79.82 Long term (current) use of aspirin; Z90.710 Acquired absence of both cervix and uterus; Z90.49 Acquired absence of other specified parts of digestive tract; K44.9 Diaphragmatic hernia without obstruction or gangrene; R09.89 Other specified symptoms and signs involving the circulatory and respiratory systems; R93.3 Abnormal findings on diagnostic imaging of other parts of digestive tract
CPT/HCPCS: 36415; 71045; 71275; 74177; 80053; 81001; 83690; 84484; 85025; 85380; 85610; 85730; 87086; 87186; 93005; 96360; 99284; J7030; Q9967